=== PATIENT | female | born 1950 | race Caucasian/White ===

== ENCOUNTER → 2019-02-20 | Outpatient (CLI) | payer MEDICARE ==
[~2019-02-20] MED LIST: AMLO10TA82 PO; ASP81TEC PO; DILT240C PO; FLUO40CA PO; GLYB2.5T4 PO; HYDR1TAB66 PO; MMT17NA NS; MULT-608 PO; NAPR-243 PO; OMEP20TA2 PO; SIMV20TA3 PO; TRAM50TA2 PO
--- NOTE | 2019-02-20 14:27 | Diagnostic Imaging Report ---
INDICATION: Foot pain, no known injury. TECHNIQUE: 3 views of the right foot CORRELATION STUDY: None FINDINGS: The osseous structures of the foot are intact. Joint spaces are maintained. Alignment anatomic. Approximately 5 mm plantar calcaneal spur. Soft tissues appearing unremarkable. IMPRESSION: 1. Negative for acute findings of the foot. Dictated by: Dictated on workstation # [id number]
--- NOTE | 2019-02-20 14:31 | Diagnostic Imaging Report ---
INDICATION: Low back pain. No known injury. TECHNIQUE: AP, Lateral and Spot imaging of the lumbar spine CORRELATION STUDY: None FINDINGS: Mild leftward curvature lumbar spine apex L3 level. There is otherwise straightening of the normal lumbar lordosis. Trace retrolisthesis of L4 on L5, L3 on L4 and L2 on L3. Lumbar vertebral body heights are well-maintained without acute parenchymal compression deformity or significant loss of height. Endplate lipping and sclerosis particularly at the L3, L4 and L5 levels. Hypertrophic facet arthropathy at L4-L5 and L5-S1 level. There does appear to be rather sizable osteophyte projecting at the posterior inferior L4 vertebral body which may result in foraminal and/or canal narrowing. IMPRESSION: 1. Mild rightward curvature of the lumbar spine. 2. Advanced degenerative changes particularly at the L4-L5 and L5-S1 levels. Prominent osteophyte projects posteriorly at the L4 level may predispose to canal and/or foraminal narrowing. Dictated by: Dictated on workstation # [id number]
== END ==
LOC: RAD FS 14:04
PROVIDERS: ATTEND Nurse Practitioner Family
DX: M43.8X6 Other specified deforming dorsopathies, lumbar region (principal); M47.817 Spondylosis without myelopathy or radiculopathy, lumbosacral region; M25.78 Osteophyte, vertebrae
CPT/HCPCS: 72100; 73630

== ENCOUNTER → 2019-04-27 | Outpatient (CLI) | payer MEDICARE ==
--- NOTE | 2019-04-27 13:22 | Diagnostic Imaging Report ---
INDICATION: COUGH, HOARSNESS, HISTORY OF TOBACCO USEAGE COMPARISON: None FINDINGS: Frontal and lateral views of the chest demonstrate normal heart size and pulmonary vascularity. The lungs are clear. There are no signs of infiltrate, pleural effusions or pneumothoraces. The visualized osseous structures show no acute abnormalities. IMPRESSION: 1. No acute process. No signs of infiltrates, effusions or pneumothoraces. Dictated by: Dictated on workstation # [id number]
== END ==
LOC: RAD FS 12:46
PROVIDERS: ATTEND Nurse Practitioner
DX: R05 Cough (principal); R49.0 Dysphonia; Z87.891 Personal history of nicotine dependence
CPT/HCPCS: 71046

== ENCOUNTER 2020-08-17 18:16 | Emergency (ER) | payer MEDICARE ==
[~2020-08-17] VITALS: Ht 160 cm; Wt 105.7 kg
[2020-08-17 18:17] VITALS: BP 192/83
--- NOTE | 2020-08-17 18:46 | ED Cardiac General ---
History of Present Illness General Chief Complaint: Cardiac/General Problems Stated Complaint: HIGH BP Nursing Triage Note: PT HERE WITH ELVATED BLOOD PRESSURE. SHE STATES SHE HAS AN APPT WITH HER TURPENTINE DISTILLER IN THE MORNING AND DECIDED SHE THINKS SHE WILL WAIT AND SEE HIM ON THE MORNING. SHE STATES SHE GOT ANXIOUS EARLIER WHEN SHE SAW THE ELAVATION. Source: patient History of Present Illness Date Seen by Provider: Aug 17, 2020 Time Seen by Provider: 18:16 Initial Comments 70-year-old female presenting with concerns about her blood pressure. She states that she became anxious and worried about her blood pressure when she was seen in the numbers elevated. She recently had an increase in her irbesartan dose by Shira Klein from [facility]. She has an appointment to see Dr. Nguyen, a certified coder in [place]. She has the appointment to see her certified coder tomorrow morning on 18 August but became worried tonight when she saw the numbers of her blood pressure. She denies any headache, vision change, neck pain, chest pain, shortness of breath. She has had no nausea or vomiting. She denies any swelling in her legs. She does have chronic sciatica and low back pain from disc disease in her lower spine. 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5 Mg Tablet, 3 MG PO DAILY, (Reported) Hydrocodone Bit/Acetaminophen 1 Each Tablet, 1 EACH PO Q4 PRN, (Reported) Mometasone Furoate 17 Gm [place], 1 SPRAY NS UD, (Reported) Multivitamins 1 Tab Tablet, 1 TAB PO DAILY, (Reported) Naproxen 500 Mg Tablet, 1 EACH PO DAILY PRN, (Reported) Omeprazole 20 Mg Tablet.dr, 20 MG PO DAILY, (Reported) Simvastatin 20 Mg Tablet, 20 MG PO DAILY, (Reported) Tramadol Hcl 50 Mg Tablet, 50 MG PO Q6 PRN, (Reported) Patient Home Medication List Home Medication List Reviewed: Yes Review of Systems Review of Systems Constitutional: No chills, No fever EENTM: No Blurred Vision, No Double Vision Respiratory: See HPI Cardiovascular: See HPI; Denies Chest Pain Gastrointestinal: No Symptoms Reported Genitourinary: No Symptoms Reported Musculoskeletal: back pain (Chronic low back pain into her hips that is stable and no worse than normal) Skin: no symptoms reported Psychiatric/Neurological: Anxiety; Denies Headache, Denies Numbness, Denies Paresthesia Endocrine: Denies Unexplained Weight Gain, Denies Unexplaned Weight Loss Past Npnswos-Qswqjx-Wdmjju Hx Past Med/Social Hx: Reviewed Nursing Past Med/Soc Hx Patient Social History Alcohol Use: Denies Use Smoking Status: Never a Smoker 2nd Hand Smoke Exposure: No Recent Infectious Disease Expo: No Recent Hopitalizations: No Seasonal Allergies Seasonal Allergies: No Past Medical History Respiratory: No Cardiac: Yes (HX- AFIB) Atrial Fibrillation, Hypertension Neurological: No 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 Disorders: No Sexually Transmitted Disease: No Genitourinary: No Gastrointestinal: Yes Gastroesophageal Reflux Musculoskeletal: Yes Chronic Back Pain Endocrine: Yes Diabetes, Non-Insulin dep Cancer: No Psychosocial: Yes Anxiety, Depression Integumentary: No Blood Disorders: No Physical Exam Vital Signs Vital Signs - First Documented 08/17/20 18:17 Temp 36.5 Pulse 57 Resp 18 B/P (MAP) 192/83 (119) Pulse Ox 97 O2 Delivery Room Air Capillary Refill : Less Than 3 Seconds Height, Weight, BMI Height: '" Weight: lbs. oz. kg; 41.00 BMI Method: General Appearance: No Apparent Distress, WD/WN, Anxious HEENT: PERRL/EOMI, Pharynx Normal Neck: Full Range of Motion, Normal Inspection, Non Tender, Supple Respiratory: Chest Non Tender, Lungs Clear, Normal Breath Sounds, No Accessory Muscle Use, No Respiratory Distress Cardiovascular: Regular Rate, Rhythm, Normal Peripheral Pulses Gastrointestinal: Normal Bowel Sounds, No Pulsatile Mass, Non Tender, Soft Rectal: Deferred Extremity: Normal Capillary Refill, No Pedal Edema Neurologic/Psychiatric: Alert, Oriented x3 Skin: Normal Color, Warm/Dry Progress/Results/Core Measures Results/Orders Vital Signs/I&O 08/17/20 18:17 Temp 36.5 Pulse 57 Resp 18 B/P (MAP) 192/83 (119) Pulse Ox 97 O2 Delivery Room Air Blood Pressure Mean: 119 Progress Progress Note : Progress Note Initial blood pressure was 192/83 but while resting on the bed and discussing treatment and evaluation options with the patient her repeat blood pressure was 170/71. She denied any headache, vision change, neck or chest pain, shortness of breath, nausea or vomiting. Counseled that blood work and cardiac evaluation can be done tonight to look for signs of kidney damage with her only having a single kidney as well as looking for heart disease or acute changes with her heart. However the patient declined stating that she would rather go home and take her nighttime dose of medication and then keep her appointment in the [facility] with the certified coder. Counseled that if she had problems develop overnight to return or seek medical care. Otherwise take her nighttime dose of medication once she got home and plan on keeping the appointment with cardiology in the morning. Departure Impression Primary Impression: Elevated blood pressure reading Disposition: HOME, SELF-CARE Condition: Stable Departure-Patient Inst. Decision time for Depature: 18:45 Referrals: MOLLY POLLARD MD (PCP) Primary Care Physician SHIRA KLEIN APRN (Family) Primary Care Physician Patient Instructions: High Blood Pressure (DC) Add. Discharge Instructions: Take your Irbesartan tonight when you get home to help with your blood pressure. Follow up with cardiology tomorrow as scheduled and see if they want to check your labs and see what your kidney function and heart tests show. They may want to adjust your medicine to help get better control of your blood pressures. All discharge instructions reviewed with patient and/or family. Voiced understanding. DONNA BARCENAS MD Aug 17, 2020 18:46
== END 2020-08-17 18:48 | disposition home or self-care (01) ==
LOC: EDUNIT# 18:16 → ER FS 18:17
DX: I10 Essential (primary) hypertension (principal); I48.91 Unspecified atrial fibrillation; E11.9 Type 2 diabetes mellitus without complications; K21.9 Gastro-esophageal reflux disease without esophagitis; F41.9 Anxiety disorder, unspecified; F32.9 Major depressive disorder, single episode, unspecified; G89.29 Other chronic pain; M54.5 Low back pain; Z79.82 Long term (current) use of aspirin; Z79.899 Other long term (current) drug therapy
CPT/HCPCS: 99283

== ENCOUNTER 2020-09-21 01:32 | Emergency (ER) | payer MEDICARE ==
[~2020-09-21] VITALS: Ht 165.1 cm; Wt 114.0 kg
[2020-09-21 01:36] VITALS: BP 174/102
--- NOTE | 2020-09-21 01:43 | ED Cardiac General ---
History of Present Illness General Stated Complaint: rapid heart rate History of Present Illness Date Seen by Provider: September 21, 2020 Time Seen by Provider: 01:38 Initial Comments 70-year-old female presents because her "heart is racing" patient has a history of atrial fib. She reports she takes sotalol for this. He reports that it woke her up approximately 15 to 20 minutes prior to arrival and that seems to be beating faster and harder than normal. She does not have any chest pain. She has no shortness of breath, nausea, diaphoresis, fevers, chills, cough. Allergies and Home Medications Allergies Coded Allergies: No Known Drug Allergies (Unverified , 03/26/11) Home Medications Amlodipine Besylate 10 Mg Tablet, 1 EACH PO DAILY, (Reported) Aspirin 81 Mg Tabec, 81 MG PO DAILY, (Reported) Diltiazem Hcl 240 Mg Cap.sr.24h, 1 EACH PO DAILY, (Reported) Fluoxetine Hcl 40 Mg Capsule, 1 EACH PO DAILY, (Reported) Glyburide 2.5 Mg Tablet, 3 MG PO DAILY, (Reported) Hydrocodone Bit/Acetaminophen 1 Each Tablet, 1 EACH PO Q4 PRN, (Reported) Mometasone Furoate 17 Gm [place], 1 SPRAY NS UD, (Reported) Multivitamins 1 Tab Tablet, 1 TAB PO DAILY, (Reported) Naproxen 500 Mg Tablet, 1 EACH PO DAILY PRN, (Reported) Omeprazole 20 Mg Tablet.dr, 20 MG PO DAILY, (Reported) Simvastatin 20 Mg Tablet, 20 MG PO DAILY, (Reported) Tramadol Hcl 50 Mg Tablet, 50 MG PO Q6 PRN, (Reported) Patient Home Medication List Home Medication List Reviewed: Yes Review of Systems Review of Systems Constitutional: No chills, No dizziness, No fever, No weakness Respiratory: Denies Cough, Denies Shortness of Air Cardiovascular: Denies Chest Pain; Irregular Heart Rate; Denies Lightheadedness; Palpitations; Denies Syncope Gastrointestinal: Denies Abdominal Pain, Denies Nausea, Denies Vomiting Genitourinary: No Symptoms Reported Musculoskeletal: no symptoms reported Skin: no symptoms reported Psychiatric/Neurological: No Symptoms Reported Endocrine: No Symptoms Reported Past Nuzsvev-Dkmmjg-Qxybes Hx Past Med/Social Hx: Reviewed Nursing Past Med/Soc Hx Patient Social History 2nd Hand Smoke Exposure: No Recent Hopitalizations: No Seasonal Allergies Seasonal Allergies: Yes Past Medical History Surgeries: Yes (RT KNEE, ABLATIONS) Eye Surgery, Hysterectomy, Nephrectomy, Orthopedic Respiratory: No Cardiac: Yes (HX- AFIB) Atrial Fibrillation, Chronic Edema/Swelling, High Cholesterol, Hypertension Neurological: No 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 Sexually Transmitted Disease: No Genitourinary: No Kidney Stones Gastrointestinal: Yes Gastroesophageal Reflux Musculoskeletal: Yes Chronic Back Pain Endocrine: Yes Diabetes, Non-Insulin dep HEENT: Yes (MACULAR SX) Cancer: No Kidney Did You Recieve Any Treatments: Yes What Type of Treatment Did You: Surgical Intervention Psychosocial: Yes Anxiety, Depression Integumentary: No Blood Disorders: No Physical Exam Vital Signs Vital Signs - First Documented 09/21/20 01:36 Temp 36.8 Pulse 120 Resp 17 B/P (MAP) 174/102 (126) Pulse Ox 96 O2 Delivery Room Air Capillary Refill : Height, Weight, BMI Height: '" Weight: lbs. oz. kg; 41.00 BMI Method: General Appearance: No Apparent Distress HEENT: PERRL/EOMI, Moist Mucous Membranes Neck: Full Range of Motion Respiratory: Lungs Clear, Normal Breath Sounds Cardiovascular: Normal Peripheral Pulses, Irregularly Irregular, Tachycardia Gastrointestinal: Non Tender, Soft Extremity: Normal Capillary Refill, Normal Range of Motion Neurologic/Psychiatric: Alert, Oriented x3, No Motor/Sensory Deficits, turnaround engineer II- XII Norm as Tested Skin: Normal Color, Warm/Dry Progress/Results/Core Measures Results/Orders Lab Results Laboratory Tests Test 09/21/20 01:45 Range/Units White Blood Count 8.8 4.3-11.0 10^3/uL Red Blood Count 4.69 4.35-5.85 10^6/uL Hemoglobin 13.2 11.5-16.0 G/DL Hematocrit 41 35-52 % Mean Corpuscular Volume 88 80-99 FL Mean Corpuscular Hemoglobin 28 25-34 PG Mean Corpuscular Hemoglobin Concent 32 32-36 G/DL Red Cell Distribution Width 15.6 H 10.0-14.5 % Platelet Count 228 130-400 10^3/uL Mean Platelet Volume 10.5 H 7.4-10.4 FL Sodium Level 143 135-145 MMOL/L Potassium Level 3.7 3.6-5.0 MMOL/L Chloride Level 107 98-107 MMOL/L Carbon Dioxide Level 27 21-32 MMOL/L Anion Gap 9 5-14 MMOL/L Blood Urea Nitrogen 12 7-18 MG/DL Creatinine 0.75 0.60-1.30 MG/DL Estimat Glomerular Filtration Rate > 60 BUN/Creatinine Ratio 16 Glucose Level 155 H 70-105 MG/DL Calcium Level 9.4 8.5-10.1 MG/DL Corrected Calcium 9.2 8.5-10.1 MG/DL Magnesium Level 2.1 1.6-2.4 MG/DL Total Bilirubin 0.3 0.1-1.0 MG/DL Aspartate Amino Transf (AST/SGOT) 19 5-34 U/L Alanine Aminotransferase (ALT/SGPT) 23 0-55 U/L Alkaline Phosphatase 102 40-136 U/L Troponin I < 0.30 <0.30 NG/ML Total Protein 7.1 6.4-8.2 GM/DL Albumin 4.2 3.2-4.5 GM/DL My Orders Orders - LIM,LADY L DO Chest 1 View Ap/Pa Only (09/21/20 01:46) Ekg Tracing (09/21/20 01:46) Ed Iv/Invasive Line Start (09/21/20 01:46) Monitor-Rhythm Ecg Trace Only (09/21/20 01:46) Cbc No Diff (09/21/20 01:46) Comprehensive Metabolic Panel (09/21/20 01:46) Magnesium (09/21/20 01:46) Troponin I Fs (09/21/20 01:46) Ed Iv/Invasive Line Start (09/21/20 01:47) Ns Iv 500 Ml (Sodium Chloride 0.9%) (09/21/20 02:00) Medications Given in ED Current Medications Medications Dose Ordered Sig/Fauzia Route Start Time Stop Time Status Last Admin Dose Admin Sodium Chloride 500 ml @ 0 mls/hr Q0M ONCE IV 09/21/20 02:00 09/21/20 02:01 DC 09/21/20 01:54 999 MLS/HR Vital Signs/I&O 09/21/20 01:36 Temp 36.8 Pulse 120 Resp 17 B/P (MAP) 174/102 (126) Pulse Ox 96 O2 Delivery Room Air Progress Progress Note : Progress Note Patient initial rhythm upon level was atrial fib with heart rate ranging from approximately 90-1 20 on the monitor. Shortly after arrival patient spontaneously converted to normal sinus rhythm with a heart rate approximately 60. Patient labs shows no acute abnormalities. Patient received 500 mL bolus of fluid. Patient requested to be discharged home symptoms of fluids finished. Patient had no symptoms upon discharge.. Initial ECG Impression Date: September 21, 2020 Initial ECG Impression Time: 01:36 Initial ECG Rate: 113 Initial ECG Rhythm: A Fib/Flutter Initial ECG Impression: Nonspecific Changes, Atrial Fibrillation Departure Impression Primary Impression: Atrial fibrillation Qualified Codes: I48.20 - Chronic atrial fibrillation, unspecified Disposition: HOME, SELF-CARE Condition: Stable Departure-Patient Inst. Referrals: IVON KLEIN APRN (PCP/Family) Primary Care Physician Patient Instructions: Atrial Fibrillation Add. Discharge Instructions: Follow-up with your concrete craftsman in the next week for continuation of care and recheck of your atrial fib LADY LIM DO September 21, 2020 01:43
[2020-09-21 01:56] LABS: HEMATOCRIT 41 % (35-52); HEMOGLOBIN 13.2 G/DL (11.5-16.0); MEAN CORPUSCULAR HEMOGLOBIN 28 PG (25-34); MEAN CORPUSCULAR HGB CONC 32 G/DL (32-36); MEAN CORPUSCULAR VOLUME 88 FL (80-99); MEAN PLATELET VOLUME 10.5 FL (7.4-10.4); PLATELET COUNT 228 10^3/uL (130-400); WHITE BLOOD COUNT 8.8 10^3/uL (4.3-11.0)
[2020-09-21] MEDS ORDERED: NS IV 500 ML 500 ML IV ONE (02:00)
[2020-09-21 02:16] LABS: ALANINE AMINOTRANSFERASE 23 U/L (0-55); ALBUMIN 4.2 GM/DL (3.2-4.5); ALKALINE PHOSPHATASE 102 U/L (40-136); BILIRUBIN,TOTAL 0.3 MG/DL (0.1-1.0); BUN/CREATININE RATIO 16; CALCIUM 9.4 MG/DL (8.5-10.1); CARBON DIOXIDE 27 MMOL/L (21-32); CHLORIDE 107 MMOL/L (98-107); CREATININE SERUM 0.75 MG/DL (0.60-1.30); GFR ESTIMATED > 60; GLUCOSE 155 MG/DL (70-105); MAGNESIUM 2.1 MG/DL (1.6-2.4); POTASSIUM 3.7 MMOL/L (3.6-5.0); SODIUM 143 MMOL/L (135-145); TOTAL PROTEIN 7.1 GM/DL (6.4-8.2)
--- NOTE | 2020-09-21 07:15 | Diagnostic Imaging Report ---
INDICATION: Chest pain. TECHNIQUE: Single view chest 1:41 AM. CORRELATION STUDY: 04/27/2019 FINDINGS: Heart size enlarged. Vasculature slightly prominent. This does appear to be slightly increased from prior. Elevated right diaphragm medially. Lung puga are clear. IMPRESSION: 1. Cardiac enlargement with borderline vasculature, change from prior. Dictated by: Dictated on workstation # [id number]
== END 2020-09-21 02:38 | disposition home or self-care (01) ==
LOC: EDUNIT# 01:32 → ER FS 01:34
DX: I48.91 Unspecified atrial fibrillation (principal); I10 Essential (primary) hypertension; E11.9 Type 2 diabetes mellitus without complications; E78.00 Pure hypercholesterolemia, unspecified; K21.9 Gastro-esophageal reflux disease without esophagitis; G89.29 Other chronic pain; M54.9 Dorsalgia, unspecified; F41.9 Anxiety disorder, unspecified; F32.9 Major depressive disorder, single episode, unspecified; Z79.891 Long term (current) use of opiate analgesic; Z79.1 Long term (current) use of non-steroidal anti-inflammatories (NSAID); Z79.899 Other long term (current) drug therapy
CPT/HCPCS: 36415; 71045; 80053; 83735; 84484; 85027; 93005; 93041

== ENCOUNTER → 2020-10-01 | Outpatient (CLI) | payer MEDICARE ==
[2020-10-01 17:03] LABS: INR 1.1 (0.8-1.4); PROTHROMBIN TIME PATIENT 14.5 SEC (12.2-14.7)
== END ==
LOC: LAB FS 16:00
PROVIDERS: ATTEND Nurse Practitioner Family
DX: I48.0 Paroxysmal atrial fibrillation (principal)
CPT/HCPCS: 36415; 85610; 85730

== ENCOUNTER → 2020-10-11 | Outpatient (CLI) | payer MEDICARE ==
[2020-10-11 13:09] LABS: INR 1.2 (0.8-1.4); PROTHROMBIN TIME PATIENT 15.1 SEC (12.2-14.7)
== END ==
LOC: LAB FS 12:22
PROVIDERS: ATTEND Family Medicine
DX: I48.0 Paroxysmal atrial fibrillation (principal)
CPT/HCPCS: 36415; 85610; 85730

== ENCOUNTER 2020-11-05 09:09 | Emergency (ER) | payer MEDICARE ==
[~2020-11-05] VITALS: Ht 165.1 cm; Wt 112.2 kg
--- NOTE | 2020-11-05 09:18 | ED Lower Extremity ---
General Chief Complaint: Lower Extremity Stated Complaint: SWELLING/REDNESS ON KNEE History of Present Illness Date Seen by Provider: Nov 05, 2020 Time Seen by Provider: 09:18 Initial Comments 70-year-old female presents with left knee swelling and erythema. Patient reports has been going on for a couple days. She is not exactly sure when it started. Patient has been seen by physical therapy following a knee replacement about a month ago. They told her to present to the ER for further evaluation today. Patient denies any pain. Patient has not called her sterilization specialist. Patient with no fevers chills or other systemic complaints. Allergies and Home Medications Allergies Coded Allergies: lisinopril (Verified Allergy, Unknown, 11/05/20) Home Medications Amlodipine Besylate 10 Mg Tablet, 1 EACH PO DAILY, (Reported) Aspirin 81 Mg Tabec, 81 MG PO DAILY, (Reported) Cephalexin 500 Mg Tablet, 500 MG PO QID Prescribed by: LADY LIM on 11/05/20 0950 Diltiazem Hcl 240 Mg Cap.sr.24h, 1 EACH PO DAILY, (Reported) Fluoxetine Hcl 40 Mg Capsule, 1 EACH PO DAILY, (Reported) Glyburide 2.5 Mg Tablet, 3 MG PO DAILY, (Reported) Hydrocodone Bit/Acetaminophen 1 Each Tablet, 1 EACH PO Q4 PRN, (Reported) Mometasone Furoate 17 Gm [place], 1 SPRAY NS UD, (Reported) Multivitamins 1 Tab Tablet, 1 TAB PO DAILY, (Reported) Naproxen 500 Mg Tablet, 1 EACH PO DAILY PRN, (Reported) Omeprazole 20 Mg Tablet.dr, 20 MG PO DAILY, (Reported) Simvastatin 20 Mg Tablet, 20 MG PO DAILY, (Reported) Tramadol Hcl 50 Mg Tablet, 50 MG PO Q6 PRN, (Reported) Patient Home Medication List Home Medication List Reviewed: Yes Review of Systems Constitutional: No chills, No fever Respiratory: No cough, No short of breath Cardiovascular: No chest pain Gastrointestinal: No abdominal pain, No nausea, No vomiting Musculoskeletal: see HPI Skin: see HPI Past Xdmurzk-Pmwoyr-Tjabbv Hx Past Med/Social Hx: Reviewed Nursing Past Med/Soc Hx Patient Social History 2nd Hand Smoke Exposure: No Recent Hopitalizations: No Seasonal Allergies Seasonal Allergies: Yes Past Medical History Surgeries: Yes (RT KNEE, ABLATIONS) Eye Surgery, Hysterectomy, Nephrectomy, Orthopedic Respiratory: No Cardiac: Yes (HX- AFIB) Atrial Fibrillation, Chronic Edema/Swelling, High Cholesterol, Hypertension Neurological: No 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 Sexually Transmitted Disease: No Genitourinary: No Kidney Stones Gastrointestinal: Yes Gastroesophageal Reflux Musculoskeletal: Yes Chronic Back Pain Endocrine: Yes Diabetes, Non-Insulin dep HEENT: Yes (MACULAR SX) Cancer: No Kidney Did You Recieve Any Treatments: Yes What Type of Treatment Did You: Surgical Intervention Psychosocial: Yes Anxiety, Depression Integumentary: No Blood Disorders: No Physical Exam Vital Signs Vital Signs - First Documented 11/05/20 09:14 Temp 36.3 Pulse 62 Resp 18 B/P (MAP) 163/64 (97) Pulse Ox 97 O2 Delivery Room Air Capillary Refill : Height, Weight, BMI Height: '" Weight: lbs. oz. kg; 41.00 BMI Method: General Appearance: no apparent distress Cardiovascular: normal peripheral pulses, regular rate, rhythm Respiratory: lungs clear, normal breath sounds Gastrointestinal: non tender, soft Hips: bilateral hip non-tender Legs: bilateral leg non-tender Knees: left knee other (Mild swelling and erythema along incision post knee replacement. No drainage. Mild warmth. Minimal swelling.) Neurologic/Psychiatric: alert, normal mood/affect, oriented x 3 Skin: other (Mild erythema and minimal warmth along incision post knee replaced) Progress/Results/Core Measures Results/Orders Lab Results Laboratory Tests Test 11/05/20 09:45 Range/Units White Blood Count 8.7 4.3-11.0 10^3/uL Red Blood Count 4.28 L 4.35-5.85 10^6/uL Hemoglobin 11.9 11.5-16.0 G/DL Hematocrit 38 35-52 % Mean Corpuscular Volume 89 80-99 FL Mean Corpuscular Hemoglobin 28 25-34 PG Mean Corpuscular Hemoglobin Concent 31 L 32-36 G/DL Red Cell Distribution Width 15.3 H 10.0-14.5 % Platelet Count 204 130-400 10^3/uL Mean Platelet Volume 11.2 H 7.4-10.4 FL Immature Granulocyte % (Auto) 0 % Neutrophils (%) (Auto) 75 42-75 % Lymphocytes (%) (Auto) 14 12-44 % Monocytes (%) (Auto) 7 0-12 % Eosinophils (%) (Auto) 3 0-10 % Basophils (%) (Auto) 1 0-10 % Neutrophils # (Auto) 6.5 1.8-7.8 X 10^3 Lymphocytes # (Auto) 1.2 1.0-4.0 X 10^3 Monocytes # (Auto) 0.6 0.0-1.0 X 10^3 Eosinophils # (Auto) 0.3 0.0-0.3 10^3/uL Basophils # (Auto) 0.1 0.0-0.1 10^3/uL Immature Granulocyte # (Auto) 0.0 0.0-0.1 10^3/uL Sodium Level 141 135-145 MMOL/L Potassium Level 3.5 L 3.6-5.0 MMOL/L Chloride Level 106 98-107 MMOL/L Carbon Dioxide Level 23 21-32 MMOL/L Anion Gap 12 5-14 MMOL/L Blood Urea Nitrogen 13 7-18 MG/DL Creatinine 0.60 0.60-1.30 MG/DL Estimat Glomerular Filtration Rate > 60 BUN/Creatinine Ratio 22 Glucose Level 131 H 70-105 MG/DL Calcium Level 9.0 8.5-10.1 MG/DL C-Reactive Protein 0.65 H <0.50 MG/DL My Orders Orders - LIM,LADY L DO Basic Metabolic Panel (11/05/20 09:25) Cbc With Automated Diff (11/05/20 09:25) Blood Culture (11/05/20 09:25) Crp Fs (11/05/20 09:25) Ceftriaxone (Rocephin) (11/05/20 09:30) Lidocaine 1% Inj 20 Ml (Xylocaine 1% Inj (11/05/20 09:30) Vital Signs/I&O 11/05/20 09:14 Temp 36.3 Pulse 62 Resp 18 B/P (MAP) 163/64 (97) Pulse Ox 97 O2 Delivery Room Air Progress Progress Note : Progress Note Patient was given Rocephin IM in the ER. She will be discharged home on Keflex. Mild superficial cellulitis at this time. Patient should call her orthopedic surgeon on Saturday morning to arrange recheck as soon as possible. She should return the ER as needed Departure Impression Primary Impression: Postoperative wound infection Additional Impression: Cellulitis of left knee Disposition: 01 HOME, SELF-CARE Condition: Stable Departure-Patient Inst. Referrals: IVON KLEIN APRN (PCP/Family) Primary Care Physician Patient Instructions: Cellulitis (Skin Infection), Adult ED, Wound Care ED Add. Discharge Instructions: call your orthopedic surgeon first thing saturday morning to schedule an appointment there reevaluate next week Return to the ER as needed All discharge instructions reviewed with patient and/or family. Voiced understanding. Scripts Cephalexin (Cephalexin) 500 Mg Tablet 500 MG PO QID, #20 TAB 0 Refills Prov: LADY LIM DO 11/05/20 LADY LIM DO Nov 05, 2020 09:18
[2020-11-05] MEDS ORDERED: cefTRIAXone 1,000 MG VIAL IM ONE (09:30)
[2020-11-05] MEDS ORDERED: LIDOCAINE 1% INJ 20 ML 20 ML VIAL INJ ONE (09:30)
[2020-11-05] MEDS ORDERED: CEPH500T PO (09:50)
[2020-11-05 09:57] LABS: BASOPHILS % (AUTO) 1 % (0-10); EOSINOPHILS % (AUTO) 3 % (0-10); HEMATOCRIT 38 % (35-52); HEMOGLOBIN 11.9 G/DL (11.5-16.0); LYMPHOCYTES # (AUTO) 1.2 X 10^3 (1.0-4.0); LYMPHOCYTES % (AUTO) 14 % (12-44); MEAN CORPUSCULAR HEMOGLOBIN 28 PG (25-34); MEAN CORPUSCULAR HGB CONC 31 G/DL (32-36); MEAN CORPUSCULAR VOLUME 89 FL (80-99); MEAN PLATELET VOLUME 11.2 FL (7.4-10.4); MONOCYTES # (AUTO) 0.6 X 10^3 (0.0-1.0); MONOCYTES % (AUTO) 7 % (0-12); NEUTROPHILS # (AUTO) 6.5 X 10^3 (1.8-7.8); NEUTROPHILS % (AUTO) 75 % (42-75); PLATELET COUNT 204 10^3/uL (130-400); WHITE BLOOD COUNT 8.7 10^3/uL (4.3-11.0)
[2020-11-05 09:58] LABS: BASOPHILS # (AUTO) 0.1 10^3/uL (0.0-0.1); EOSINOPHILS # (AUTO) 0.3 10^3/uL (0.0-0.3)
[2020-11-05 10:11] LABS: BUN/CREATININE RATIO 22; CARBON DIOXIDE 23 MMOL/L (21-32); CHLORIDE 106 MMOL/L (98-107); GFR ESTIMATED > 60; GLUCOSE 131 MG/DL (70-105); POTASSIUM 3.5 MMOL/L (3.6-5.0); SODIUM 141 MMOL/L (135-145)
[2020-11-05 11:10] VITALS: BP 152/58
== END 2020-11-05 11:10 | disposition home or self-care (01) ==
LOC: EDUNIT# 09:09 → ER FS 09:11
DX: T81.40XA Infection following a procedure, unspecified, initial encounter (principal); L03.116 Cellulitis of left lower limb; E11.9 Type 2 diabetes mellitus without complications; E78.00 Pure hypercholesterolemia, unspecified; I10 Essential (primary) hypertension; G89.29 Other chronic pain; M54.9 Dorsalgia, unspecified; F32.9 Major depressive disorder, single episode, unspecified; K21.9 Gastro-esophageal reflux disease without esophagitis; Z96.652 Presence of left artificial knee joint; Z79.82 Long term (current) use of aspirin; Z79.899 Other long term (current) drug therapy; Z79.891 Long term (current) use of opiate analgesic
CPT/HCPCS: 36415; 80048; 85025; 86141; 87040

== ENCOUNTER → 2021-02-10 | Outpatient (CLI) | payer MEDICARE ==
[~2021-02-10] MED LIST changes: +CEPH500T PO
== END ==
LOC: LAB FS 10:00
PROVIDERS: ATTEND Orthopaedic Surgery Orthopaedic Trauma
DX: Z01.812 Encounter for preprocedural laboratory examination (principal); Z20.822 Contact with and (suspected) exposure to COVID-19
CPT/HCPCS: 87635

== ENCOUNTER → 2021-03-15 | Outpatient (CLI) | payer MEDICARE ==
[~2021-03-15] MED LIST changes: +ACET-2267 PO; +ACHD5005 PO; +AMLO-251 PO; +CEPH250C PO; +DOXA2TAB2 PO; +FURO40TA4 PO; +IRBE300T17 PO; +PANT40TA52 PO; +POTA20TA15 PO; +SIMV20TA26 PO; +SOTA160T PO; +VITA-189 PO; +WARF-48 PO; +WRF1T PO
[2021-03-15 17:27] LABS: INR 1.9 (0.8-1.4); PROTHROMBIN TIME PATIENT 22.5 SEC (12.2-14.7)
== END ==
LOC: LAB FS 17:00
PROVIDERS: ATTEND Nurse Practitioner Family
DX: I48.91 Unspecified atrial fibrillation (principal)
CPT/HCPCS: 36415; 85610

== ENCOUNTER 2021-04-30 12:32 | Emergency (ER) | payer MEDICARE ==
[~2021-04-30] VITALS: Ht 165.1 cm; Wt 107.0 kg
[~2021-04-30 12:32] MED LIST changes: +POTA-179 PO; -POTA20TA15 PO
[2021-04-30 12:58] LABS: COLOR,URINE YELLOW
[2021-04-30 12:59] LABS: BACTERIA,URINE MODERATE /HPF; BILIRUBIN,URINE NEGATIVE (NEGATIVE); CLARITY,URINE SLIGHTLY CLOUDY; GLUCOSE, URINE (UA) NEGATIVE (NEGATIVE); KETONES,URINE NEGATIVE (NEGATIVE); LEUKOCYTE ESTERASE ,URINE TRACE (NEGATIVE); NITRITE,URINE NEGATIVE (NEGATIVE); PH,URINE 5.5 (5-9); PROTEIN,URINE NEGATIVE (NEGATIVE); SQUAMOUS EPITHELIAL CELL,UR 25-50 /HPF; WBC,URINE 25-50 /HPF; YEAST,URINE FEW /HPF
[2021-04-30 13:59] LABS: HEMATOCRIT 37 % (35-52); HEMOGLOBIN 10.6 g/dL (11.5-16.0); MEAN CORPUSCULAR HEMOGLOBIN 23 pg (25-34); MEAN CORPUSCULAR HGB CONC 29 g/dL (32-36); MEAN CORPUSCULAR VOLUME 79 fL (80-99); MEAN PLATELET VOLUME 10.2 fL (9.0-12.2); PLATELET COUNT 323 10^3/uL (130-400); WHITE BLOOD COUNT 9.2 10^3/uL (4.3-11.0)
[2021-04-30 14:00] LABS: BASOPHILS # (AUTO) 0.1 10^3/uL (0.0-0.1); BASOPHILS % (AUTO) 1 % (0-10); BILIRUBIN,TOTAL 0.4 MG/DL (0.1-1.0); CALCIUM 9.5 MG/DL (8.5-10.1); CREATININE SERUM 0.87 MG/DL (0.60-1.30); EOSINOPHILS # (AUTO) 0.3 10^3/uL (0.0-0.3); EOSINOPHILS % (AUTO) 3 % (0-10); LYMPHOCYTES # (AUTO) 1.7 X 10^3 (1.0-4.0); LYMPHOCYTES % (AUTO) 18 % (12-44); MONOCYTES # (AUTO) 0.9 X 10^3 (0.0-1.0); MONOCYTES % (AUTO) 10 % (0-12); NEUTROPHILS # (AUTO) 6.2 X 10^3 (1.8-7.8); NEUTROPHILS % (AUTO) 68 % (42-75); POTASSIUM 4.7 MMOL/L (3.6-5.0); TOTAL PROTEIN 7.8 GM/DL (6.4-8.2)
[2021-04-30] MEDS ORDERED: NITR-65 PO ×2 (14:14→14:28)
--- NOTE | 2021-04-30 14:14 | ED General ---
General Chief Complaint: Dizziness/Syncope Stated Complaint: DIZZINESS Nursing Triage Note: PT AMBULATE TO ROOM [facility] WITHOUT DIFFICULTY WITH C/O DIZZYNESS AND BEING LIGHTHEADED. Source of Information: Patient, Old Records History of Present Illness Date Seen by Provider: Apr 30, 2021 Time Seen by Provider: 12:49 Initial Comments 70-year-old female presenting with complaints of dizziness and feeling lightheaded. She states at home she felt like a warm flushed feeling went over her whole body. She is feeling dizzy with lightheadedness. She had no nausea, vomiting, chest pain, abdominal pain, diarrhea, pain with urination. She has had some frequency of urination. She denies any fever or chills. She had taken her regular medicines this morning without any difficulty. Then approximately an hour to 2 hours prior to arrival in the ED she started feeling like she was getting flushed and lightheaded. She states she does not start feel that way now but she did at home. Timing/Duration: 1-3 Hours Severity: Moderate Associated Systoms: No Chest Pain, No Cough, No Diaphoresis, No Fever/Chills, No Headaches, No Loss of Appetite, No Malaise, No Nausea/Vomiting, No Rash, No Seizure, No Shortness of Air, No Syncope, No Weakness Allergies and Home Medications Allergies Coded Allergies: lisinopril (Verified Allergy, Unknown, 11/05/20) Patient Home Medication List Home Medication List Reviewed: Yes Acetaminophen (Tylenol Extra Strength) 500 Mg Tablet, 500-1,000 MG PO Q8H PRN for PAIN-MILD (1-4), (Reported) Entered as Reported by: GIANCARLO MCCABE on 02/24/21 1320 Amlodipine Besylate (Amlodipine Besylate) 10 Mg Tablet, 10 MG PO DAILY, (Rep orted) Entered as Reported by: GIANCARLO MCCABE on 02/24/21 1320 Cephalexin (Cephalexin) 250 Mg Capsule, 500 MG PO TID Prescribed by: ANGELITO ORELLANA on 03/10/21 1203 Doxazosin Mesylate (Doxazosin Mesylate) 2 Mg Tablet, 2 MG PO DAILY, (Reported) Entered as Reported by: GIANCARLO MCCABE on 02/24/21 1320 Fluoxetine HCl (Fluoxetine HCl) 40 Mg Capsule, 40 MG PO DAILY, (Reported) Entered as Reported by: GIANCARLO MCCABE on 02/24/21 132 Furosemide (Furosemide) 40 Mg Tablet, 40 MG PO DAILY, (Reported) Entered as Reported by: GIANCARLO MCCABE on 02/24/21 132 Hydrocodone Bit/Acetaminophen (HYDROcodone/APAP 5 MG/325 MG TAB) 1 Tab Tab, 1 EA PO Q4H PRN for PAIN-MODERATE (5-7) Prescribed by: ANGELITO ORELLANA on 03/10/21 1204 Irbesartan (Irbesartan) 300 Mg Tablet, 300 MG PO HS, (Reported) Entered as Reported by: GIANCARLO MCCABE on 02/24/21 132 Nitrofurantoin Monohyd/M-Cryst (Macrobid 100 mg Capsule) 100 Mg Capsule, 1 TAB PO BID Prescribed by: DONNA BARCENAS on 04/30/21 1428 Pantoprazole Sodium (Pantoprazole Sodium) 40 Mg Tablet.dr, 40 MG PO HS, (Reported) Entered as Reported by: GIANCARLO MCCABE on 02/24/21 132 Potassium Chloride (Potassium Chloride) 20 Meq Tab.er.prt, 20 MEQ PO DAILY, (Reported) Entered as Reported by: GIANCARLO MCCABE on 02/24/21 132 Simvastatin (Simvastatin) 20 Mg Tablet, 20 MG PO HS, (Reported) Entered as Reported by: GIANCARLO MCCABE on 02/24/21 132 Sotalol HCl (Sotalol) 160 Mg Tablet, 80 MG PO BID, (Reported) Entered as Reported by: GIANCARLO MCCABE on 02/24/21 132 Vitamin B Complex (B Complex) 1 Each Tablet, 1 EACH PO DAILY, (Reported) Entered as Reported by: GIANCARLO MCCABE on 02/24/21 132 Warfarin Sodium (Warfarin Sodium) 5 Mg Tablet, 5 MG PO DAILY, (Reported) Entered as Reported by: GIANCARLO MCCABE on 02/24/21 132 Warfarin Sodium (Warfarin Sodium) 1 Mg Tablet, 1.5 MG PO DAILY, (Reported) Entered as Reported by: GIANCARLO MCCABE on 02/24/21 132 Review of Systems Review of Systems Constitutional: No chills, No fever EENTM: no symptoms reported Respiratory: no symptoms reported Cardiovascular: no symptoms reported Gastrointestinal: No nausea, No vomiting Genitourinary: No dysuria; frequency Musculoskeletal: no symptoms reported Skin: No change in color Psychiatric/Neurological: Anxiety; Denies Headache, Denies Numbness, Denies Paresthesia, Denies Tingling Past Bwvxpvl-Nkxdtg-Icnimf Hx Patient Social History Tobacco Use?: No Smoking Status: Never a Smoker Smokeless Tobacco Frequency: Never a User Use of E-Cig and/or Vaping dev: No Use of E-Cig and/or Vaping Kyaw: Never a User Substance use?: No Alcohol Use?: No Pt feels they are or have been: No Immunizations Up To Date First/Initial COVID19 Vaccinat: 07/2020 Second COVID19 Vaccination Antelmo: 07/2020 Seasonal Allergies Seasonal Allergies: Yes Past Medical History Surgery/Hospitalization HX: Atrial fibrillation, hypertension Surgeries: Yes Hysterectomy, Nephrectomy Respiratory: No Cardiac: Yes Atrial Fibrillation, Hypertension Neurological: No 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 Sexually Transmitted Disease: No Genitourinary: No Kidney Stones Gastrointestinal: Yes Gastroesophageal Reflux Musculoskeletal: Yes Arthritis Endocrine: Yes Diabetes, Non-Insulin dep HEENT: No Loss of Vision: Denies Hearing Impairment: Denies Cancer: No Kidney Did You Recieve Any Treatments: Yes What Type of Treatment Did You: Surgical Intervention Psychosocial: No Anxiety, Depression Integumentary: No Blood Disorders: No Family Medical History Heart Disease, Diabetes, Hypertension, Renal Disease Physical Exam Vital Signs Vital Signs - First Documented 04/30/21 12:37 Temp 36.0 Pulse 70 Resp 17 B/P (MAP) 132/53 (79) O2 Delivery Room Air Capillary Refill : Less Than 3 Seconds Height, Weight, BMI Height: '" Weight: lbs. oz. kg; 39.00 BMI Method: General Appearance: No Apparent Distress, WD/WN HEENT: PERRL/EOMI; No Moist Mucous Membranes (Slightly dry mucous membranes) Neck: Full Range of Motion, Normal Inspection, Supple Respiratory: Chest Non Tender, Lungs Clear, Normal Breath Sounds, No Accessory Muscle Use, No Respiratory Distress Cardiovascular: Normal Peripheral Pulses, Irregularly Irregular Gastrointestinal: Normal Bowel Sounds, No Pulsatile Mass, Non Tender, Soft Rectal: Deferred Extremity: Normal Capillary Refill, Normal Inspection, No Pedal Edema Neurologic/Psychiatric: Alert, Oriented x3 Skin: Normal Color, Warm/Dry Progress/Results/Core Measures Suspected Sepsis SIRS Temperature: Pulse: 70 Respiratory Rate: 17 Laboratory Tests 04/30/21 12:45: White Blood Count 9.2 Blood Pressure 132 /53 Mean: 79 Laboratory Tests 04/30/21 12:45: Creatinine 0.87, Platelet Count 323, Total Bilirubin 0.4 Results/Orders Lab Results Laboratory Tests Test 04/30/21 12:38 04/30/21 12:45 Range/Units Urine Color YELLOW Urine Clarity SLIGHTLY CLOUDY Urine pH 5.5 5-9 Urine Specific [place] 1.015 L 1.016-1.022 Urine Protein NEGATIVE NEGATIVE Urine Glucose (UA) NEGATIVE NEGATIVE Urine Ketones NEGATIVE NEGATIVE Urine Nitrite NEGATIVE NEGATIVE Urine Bilirubin NEGATIVE NEGATIVE Urine Urobilinogen 0.2 < = 1.0 MG/DL Urine Leukocyte Esterase TRACE H NEGATIVE Urine RBC (Auto) NEGATIVE NEGATIVE Urine RBC 5-10 H /HPF Urine WBC 25-50 H /HPF Urine Squamous Epithelial Cells 25-50 H /HPF Urine Crystals NONE /LPF Urine Bacteria MODERATE H /HPF Urine Casts NONE /LPF Urine Mucus LARGE H /LPF Urine Yeast FEW H /HPF Urine Culture Indicated NO White Blood Count 9.2 4.3-11.0 10^3/uL Red Blood Count 4.62 3.80-5.11 10^6/uL Hemoglobin 10.6 L 11.5-16.0 g/dL Hematocrit 37 35-52 % Mean Corpuscular Volume 79 L 80-99 fL Mean Corpuscular Hemoglobin 23 L 25-34 pg Mean Corpuscular Hemoglobin Concent 29 L 32-36 g/dL Red Cell Distribution Width 17.6 H 10.0-14.5 % Platelet Count 323 130-400 10^3/uL Mean Platelet Volume 10.2 9.0-12.2 fL Immature Granulocyte % (Auto) 0 % Neutrophils (%) (Auto) 68 42-75 % Lymphocytes (%) (Auto) 18 12-44 % Monocytes (%) (Auto) 10 0-12 % Eosinophils (%) (Auto) 3 0-10 % Basophils (%) (Auto) 1 0-10 % Neutrophils # (Auto) 6.2 1.8-7.8 X 10^3 Lymphocytes # (Auto) 1.7 1.0-4.0 X 10^3 Monocytes # (Auto) 0.9 0.0-1.0 X 10^3 Eosinophils # (Auto) 0.3 0.0-0.3 10^3/uL Basophils # (Auto) 0.1 0.0-0.1 10^3/uL Immature Granulocyte # (Auto) 0.0 0.0-0.1 10^3/uL Sodium Level 138 135-145 MMOL/L Potassium Level 4.7 3.6-5.0 MMOL/L Chloride Level 102 98-107 MMOL/L Carbon Dioxide Level 25 21-32 MMOL/L Anion Gap 11 5-14 MMOL/L Blood Urea Nitrogen 28 H 7-18 MG/DL Creatinine 0.87 0.60-1.30 MG/DL Estimat Glomerular Filtration Rate 64 BUN/Creatinine Ratio 32 Glucose Level 194 H 70-105 MG/DL Calcium Level 9.5 8.5-10.1 MG/DL Corrected Calcium 9.5 8.5-10.1 MG/DL Magnesium Level 2.0 1.6-2.4 MG/DL Total Bilirubin 0.4 0.1-1.0 MG/DL Aspartate Amino Transf (AST/SGOT) 26 5-34 U/L Alanine Aminotransferase (ALT/SGPT) 19 0-55 U/L Alkaline Phosphatase 84 40-136 U/L Total Protein 7.8 6.4-8.2 GM/DL Albumin 4.0 3.2-4.5 GM/DL My Orders Orders - DONNA BARCENAS MD Ua Culture If Indicated (04/30/21 12:37) Ekg Tracing (04/30/21 12:37) Comprehensive Metabolic Panel (04/30/21 13:57) Ed Iv/Invasive Line Start (04/30/21 13:57) Cbc With Automated Diff (04/30/21 13:57) Magnesium (04/30/21 13:57) Vital Signs/I&O 04/30/21 04/30/21 12:37 14:22 Temp 36.0 36.0 Pulse 70 78 Resp 17 17 B/P (MAP) 132/53 (79) 126/62 O2 Delivery Room Air Room Air Capillary Refill : Less Than 3 Seconds Blood Pressure Mean: 79 Progress Note #1: Progress Note Obtain urinalysis as well as electrocardiogram and basic electrolytes. When patient was advised that she is currently in atrial fibrillation but she states that she has had symptoms like this when she was in atrial fibrillation previously. Progress Note #2: Progress Note CBC shows chronic anemia that is stable. Her urinalysis had some bacteria and white blood cells. Her chemistry panel had mild elevation of the BUN for some mild dehydration. Counseled patient about increasing fluids and continuing regular medications. Use Macrobid to help treat for UTI. Check back with the clinic for continued concerns ECG Initial ECG Impression Date: Apr 30, 2021 Initial ECG Impression Time: 12:41 Initial ECG Rate: 34 Initial ECG Rhythm: A Fib/Flutter Initial ECG Comparisson: Changed Comment Atrial fibrillation with heart rate of 34 bpm. Nonspecific intraventricular conduction delay. QT interval 534 ms with a QTc interval 402 ms. There is no acute ST elevation. There are some artifact on the tracing. She had sinus rhythm on the most recent electrocardiogram. Departure Impression Primary Impression: Cystitis without hematuria Additional Impressions: Paroxysmal atrial fibrillation Dehydration Disposition: HOME, SELF-CARE Condition: Stable Departure-Patient Inst. Decision time for Depature: 14:13 Referrals: IVON KLEIN APRN (PCP) Primary Care Physician [facility] (Family) Primary Care Physician Patient Instructions: Atrial Fibrillation and Atrial Flutter ED, Urinary Tract Infection, Adult ED, Dehydration, Adult ED Add. Discharge Instructions: Try to drink more water and stay better hydrated. Take the full course of antibiotics to treat for infection in the bladder. Continue with your regular medications. Check back through the clinic for continued concerns. All discharge instructions reviewed with patient and/or family. Voiced understanding. Scripts Nitrofurantoin Monohyd/M-Cryst (Macrobid 100 mg Capsule) 100 Mg Capsule 1 TAB PO BID for UTI for 5 Days, #10 CAP 0 Refills Prov: DONNA BARCENAS MD 04/30/21 DONNA BARCENAS MD Apr 30, 2021 14:14
[2021-04-30 14:22] VITALS: BP 126/62
== END 2021-04-30 14:25 | disposition home or self-care (01) ==
LOC: EDUNIT# 12:32 → ER FS 12:33
DX: N30.90 Cystitis, unspecified without hematuria (principal); I48.0 Paroxysmal atrial fibrillation; E86.0 Dehydration; I10 Essential (primary) hypertension; K21.9 Gastro-esophageal reflux disease without esophagitis; E11.9 Type 2 diabetes mellitus without complications; Z79.01 Long term (current) use of anticoagulants
CPT/HCPCS: 36415; 80053; 81000; 83735; 85025; 93005

== ENCOUNTER 2021-11-13 10:45 | Emergency (ER) | payer MEDICARE, MEDICAID ==
[~2021-11-13] VITALS: Ht 165 cm; Wt 107.0 kg
[~2021-11-13 10:45] MED LIST changes: +NITR-65 PO
[2021-11-13 11:44] VITALS: BP 120/46
--- NOTE | 2021-11-13 11:55 | ED Cardiac General ---
History of Present Illness General Chief Complaint: Cardiac/General Problems Stated Complaint: ELEV BP Nursing Triage Note: PT REPORTS HER BLOOD PRESSURE IS ELEVATED BUT SHE DOES NOT HAVE ANY SYMPTOMS. SHE TOOK AMLODIPINE AN HOUR AGO. Source: patient Exam Limitations: no limitations History of Present Illness Date Seen by Provider: Nov 13, 2021 Time Seen by Provider: 11:30 Initial Comments Patient is a 71-year-old female who presents to the emergency department today with a concern for elevated blood pressure. She has a history of hypertension and is on Lasix and amlodipine. She did take her amlodipine approximately an hour prior to arrival. Patient states that she took her blood pressure a couple of times this morning and the diastolic number was greater than 85 and she was concerned. She states her systolic was in the 140s to 160s. She denies any complaints of headache, vision changes, speech difficulty. No chest pain or pressure, shortness of breath, nausea or vomiting. No problems with urination. No recent illnesses. She states she does drink quite a lot of soda and had a hot dog yesterday that she knows has a lot of salt in it. Otherwise she is not sure why her blood pressure was up this morning. But again she has 0 symptoms. As I am getting a history from her and reviewing her past medical history she appears comfortable in no acute distress. Blood pressure is rechecked in the room and is down in the 120s 130s. All other review of systems reviewed and negative except as stated. Timing/Duration: 1-3 hours Prior CP/Workup: other (h/o afib on coumadin) Associated Systoms: Denies Symptoms Allergies and Home Medications Allergies Coded Allergies: lisinopril (Verified Allergy, Unknown, 11/05/20) Patient Home Medication List Home Medication List Reviewed: Yes Acetaminophen (Tylenol Extra Strength) 500 Mg Tablet, 500-1,000 MG PO Q8H PRN for PAIN-MILD (1-4), (Reported) Entered as Reported by: GIANCARLO MCCABE on 02/24/21 1320 Amlodipine Besylate (Amlodipine Besylate) 10 Mg Tablet, 10 MG PO DAILY, (Reported) Entered as Reported by: GIANCARLO MCCABE on 02/24/21 1320 Cephalexin (Cephalexin) 250 Mg Capsule, 500 MG PO TID Prescribed by: ANGELITO ORELLANA on 03/10/21 1203 Doxazosin Mesylate (Doxazosin Mesylate) 2 Mg Tablet, 2 MG PO DAILY, (Reported) Entered as Reported by: GIANCARLO MCCABE on 02/24/21 1320 Fluoxetine HCl (Fluoxetine HCl) 40 Mg Capsule, 40 MG PO DAILY, (Reported) Entered as Reported by: GIANCARLO MCCABE on 02/24/21 1320 Furosemide (Furosemide) 40 Mg Tablet, 40 MG PO DAILY, (Reported) Entered as Reported by: GIANCARLO MCCABE on 02/24/21 1320 Hydrocodone Bit/Acetaminophen (HYDROcodone/APAP 5 MG/325 MG TAB) 1 Tab Tab, 1 EA PO Q4H PRN for PAIN-MODERATE (5-7) Prescribed by: ANGELITO ORELLANA on 03/10/21 1204 Irbesartan (Irbesartan) 300 Mg Tablet, 300 MG PO HS, (Reported) Entered as Reported by: GIANCARLO MCCABE on 02/24/21 1320 Nitrofurantoin Monohyd/M-Cryst (Macrobid 100 mg Capsule) 100 Mg Capsule, 1 TAB PO BID Prescribed by: DONNA BARCENAS on 04/30/21 1428 Pantoprazole Sodium (Pantoprazole Sodium) 40 Mg Tablet.dr, 40 MG PO HS, (Reported) Entered as Reported by: GIANCARLO MCCABE on 02/24/21 1320 Potassium Chloride (Potassium Chloride) 20 Meq Tab.er.prt, 20 MEQ PO DAILY, (Reported) Entered as Reported by: GIANCARLO MCCABE on 02/24/21 1320 Simvastatin (Simvastatin) 20 Mg Tablet, 20 MG PO HS, (Reported) Entered as Reported by: GIANCARLO MCCABE on 02/24/21 132 Sotalol HCl (Sotalol) 160 Mg Tablet, 80 MG PO BID, (Reported) Entered as Reported by: GIANCARLO MCCABE on 02/24/21 132 Vitamin B Complex (B Complex) 1 Each Tablet, 1 EACH PO DAILY, (Reported) Entered as Reported by: GIANCARLO MCCABE on 02/24/21 132 Warfarin Sodium (Warfarin Sodium) 5 Mg Tablet, 5 MG PO DAILY, (Reported) Entered as Reported by: GIANCARLO MCCABE on 02/24/21 132 Warfarin Sodium (Warfarin Sodium) 1 Mg Tablet, 1.5 MG PO DAILY, (Reported) Entered as Reported by: GIANCARLO MCCABE on 02/24/21 1320 Review of Systems Review of Systems Constitutional: see HPI EENTM: No Symptoms Reported Respiratory: No Symptoms Reported Cardiovascular: No Symptoms Reported Gastrointestinal: No Symptoms Reported Genitourinary: No Symptoms Reported Musculoskeletal: no symptoms reported Skin: no symptoms reported Psychiatric/Neurological: No Symptoms Reported All Other Systems Reviewed Negative Unless Noted: Yes Past Xjfqwhm-Lewqcw-Lamgks Hx Patient Social History Tobacco Use?: No Use of E-Cig and/or Vaping dev: No Substance use?: No Alcohol Use?: No Pt feels they are or have been: No Immunizations Up To Date First/Initial COVID19 Vaccinat: 07/2020 Second COVID19 Vaccination Antelmo: 07/2020 Third COVID19 Vaccination Date: 07/2020 Seasonal Allergies Seasonal Allergies: Yes Past Medical History Surgery/Hospitalization HX: Atrial fibrillation, hypertension Surgeries: Yes Hysterectomy, Nephrectomy Respiratory: No Cardiac: Yes Atrial Fibrillation, Hypertension Neurological: No 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 Sexually Transmitted Disease: No Genitourinary: No Kidney Stones Gastrointestinal: Yes Gastroesophageal Reflux Musculoskeletal: Yes Arthritis Endocrine: Yes Diabetes, Non-Insulin dep HEENT: No Loss of Vision: Denies Hearing Impairment: Denies Cancer: No Kidney Did You Recieve Any Treatments: Yes What Type of Treatment Did You: Surgical Intervention Psychosocial: No Anxiety, Depression Integumentary: No Blood Disorders: No Family Medical History Heart Disease, Diabetes, Hypertension, Renal Disease Physical Exam Vital Signs Vital Signs - First Documented 11/13/21 10:50 Temp 35.9 Pulse 51 Resp 18 B/P (MAP) 184/75 (111) Pulse Ox 95 O2 Delivery Room Air Capillary Refill : Less Than 3 Seconds Height, Weight, BMI Height: '" Weight: lbs. oz. 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 I cautioned her to avoid lots of soda drinking and salty foods. I advised her to come back if she develops symptoms concerning for stroke, heart attack, kidney issues. She states she does have 1 kidney. She follows up with her primary care doctor regularly. She is comfortable that her blood pressure is back down in the normal range. She is rate controlled A. fib and a bradyc ardic rate of upper 40s low 50s. No complaints of illness. Patient is comfortable with the plan of care. All questions are sought and answered Departure Impression Primary Impression: High blood pressure Qualified Codes: I10 - Essential (primary) hypertension Disposition: 01 HOME, SELF-CARE Condition: Stable Departure-Patient Inst. Decision time for Depature: 11:54 Referrals: IVON KLEIN APRN (PCP) Primary Care Physician [facility] (Family) Primary Care Physician Patient Instructions: High Blood Pressure ED Add. Discharge Instructions: Continue your blood pressure medications as directed. Watch your salt intake which includes not adding extra salt to your food or drinking lots of soda pop. Try and cut back especially on the soda drinking. If you have chest pain or pressure, heaviness, shortness of breath, headache or vision changes or any other symptoms that become concerning to you and your blood pressure is high, where the bottom number is greater than 100 or so please come back to the emergency department for reevaluation. Keep your follow-up appointments with your primary care doctor. Copy Copies To 1: JAZZMINE SAUNDERS KATHRYN M MD Nov 13, 2021 11:55
== END 2021-11-13 11:57 | disposition home or self-care (01) ==
LOC: EDUNIT# 10:45 → ER FS 10:46
DX: I10 Essential (primary) hypertension (principal); Z79.899 Other long term (current) drug therapy
CPT/HCPCS: 99281

== ENCOUNTER 2021-11-22 20:18 | Observation (INO) | payer MEDICARE, MEDICAID ==
[~2021-11-22] VITALS: Ht 165 cm; Wt 110.0 kg
--- NOTE | 2021-11-22 20:42 | ED General ---
General Stated Complaint: LOW HEART RATE History of Present Illness Date Seen by Provider: Nov 22, 2021 Time Seen by Provider: 20:35 Initial Comments 71-year-old female with PMH of atrial fibrillation with history of ablation on sotalol and Eliquis, is here with complaints of feeling dizzy around 6:30 PM to 7 PM today evening. Patient [place] and prior to coming home she took an extra tablet of sotalol. Patient stated that her heart rate was between 40 and 50 when she took the extra tablet of sotalol. An hour or so later she began having the dizziness. Pt is not a good historian and does not really know her PMH in detail. She had 1 brief episode of fluttering around that time, which did not recur. Patient denies chest pain, shortness of breath, palpitations, abdominal pain, fever, diarrhea, nausea and vomiting, headache, neck pain or neck stiffness. No known sick contacts. Allergies and Home Medications Allergies Coded Allergies: lisinopril (Verified Allergy, Unknown, 11/05/20) Patient Home Medication List Home Medication List Reviewed: Yes Acetaminophen (Tylenol Extra Strength) 500 Mg Tablet, 500-1,000 MG PO Q8H PRN for PAIN-MILD (1-4), (Reported) Entered as Reported by: GIANCARLO MCCABE on 02/24/21 132 Amlodipine Besylate (Amlodipine Besylate) 10 Mg Tablet, 10 MG PO DAILY, (Reported) Entered as Reported by: GIANCARLO MCCABE on 02/24/21 1320 Cephalexin (Cephalexin) 250 Mg Capsule, 500 MG PO TID Prescribed by: ANGELITO ORELLANA on 03/10/21 1203 Doxazosin Mesylate (Doxazosin Mesylate) 2 Mg Tablet, 2 MG PO DAILY, (Reported) Entered as Reported by: GIANCARLO MCCABE on 02/24/21 1320 Fluoxetine HCl (Fluoxetine HCl) 40 Mg Capsule, 40 MG PO DAILY, (Reported) Entered as Reported by: GIANCARLO MCCABE on 02/24/21 1320 Furosemide (Furosemide) 40 Mg Tablet, 40 MG PO DAILY, (Reported) Entered as Reported by: GIANCARLO MCCABE on 02/24/21 1320 Hydrocodone Bit/Acetaminophen (HYDROcodone/APAP 5 MG/325 MG TAB) 1 Tab Tab, 1 EA PO Q4H PRN for PAIN-MODERATE (5-7) Prescribed by: ANGELITO ORELLANA on 03/10/21 1204 Irbesartan (Irbesartan) 300 Mg Tablet, 300 MG PO HS, (Reported) Entered as Reported by: GIANCARLO MCCABE on 02/24/21 132 Nitrofurantoin Monohyd/M-Cryst (Macrobid 100 mg Capsule) 100 Mg Capsule, 1 TAB PO BID Prescribed by: DONNA BARCENAS on 04/30/21 1428 Pantoprazole Sodium (Pantoprazole Sodium) 40 Mg Tablet.dr, 40 MG PO HS, (Reported) Entered as Reported by: GIANCARLO MCCABE on 02/24/21 132 Potassium Chloride (Potassium Chloride) 20 Meq Tab.er.prt, 20 MEQ PO DAILY, (Reported) Entered as Reported by: GIANCARLO MCCABE on 02/24/21 132 Simvastatin (Simvastatin) 20 Mg Tablet, 20 MG PO HS, (Reported) Entered as Reported by: GIANCARLO MCCABE on 02/24/21 132 Sotalol HCl (Sotalol) 160 Mg Tablet, 80 MG PO BID, (Reported) Entered as Reported by: GIANCARLO MCCABE on 02/24/21 132 Vitamin B Complex (B Complex) 1 Each Tablet, 1 EACH PO DAILY, (Reported) Entered as Reported by: GIANCARLO MCCABE on 02/24/21 132 Warfarin Sodium (Warfarin Sodium) 5 Mg Tablet, 5 MG PO DAILY, (Reported) Entered as Reported by: GIANCARLO MCCABE on 02/24/21 132 Warfarin Sodium (Warfarin Sodium) 1 Mg Tablet, 1.5 MG PO DAILY, (Reported) Entered as Reported by: GIANCARLO MCCABE on 02/24/21 132 Review of Systems Review of Systems Constitutional: no symptoms reported EENTM: no symptoms reported Respiratory: no symptoms reported Cardiovascular: other (light headedness) Gastrointestinal: no symptoms reported Genitourinary: no symptoms reported Musculoskeletal: no symptoms reported Skin: no symptoms reported Psychiatric/Neurological: No Symptoms Reported Hematologic/Lymphatic: No Symptoms Reported Immunological/Allergic: no symptoms reported Past Weolmez-Axvjkl-Unigyv Hx Immunizations Up To Date First/Initial COVID19 Vaccinat: 07/2020 Second COVID19 Vaccination Antelmo: 07/2020 Third COVID19 Vaccination Date: 07/2020 Seasonal Allergies Seasonal Allergies: Yes Past Medical History Surgery/Hospitalization HX: Atrial fibrillation, hypertension Surgeries: Yes Hysterectomy, Nephrectomy Respiratory: No Cardiac: Yes Atrial Fibrillation, Hypertension Neurological: No 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 Disorders: No 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 Sexually Transmitted Disease: No Genitourinary: No Kidney Stones Gastrointestinal: Yes Gastroesophageal Reflux Musculoskeletal: Yes Arthritis Endocrine: Yes Diabetes, Non-Insulin dep HEENT: No Loss of Vision: Denies Hearing Impairment: Denies Cancer: No Kidney Did You Recieve Any Treatments: Yes What Type of Treatment Did You: Surgical Intervention Psychosocial: No Anxiety, Depression Integumentary: No Blood Disorders: No Family Medical History Heart Disease, Diabetes, Hypertension, Renal Disease Physical Exam Vital Signs Vital Signs - First Documented 11/22/21 20:54 Temp 37.0 Pulse 34 Resp 20 B/P (MAP) 156/59 (91) Pulse Ox 98 O2 Delivery Room Air Capillary Refill : Height, Weight, BMI Height: '" Weight: lbs. oz. 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 Norm as Tested Skin: Normal Color, Warm/Dry Focused Exam Lactate Level 11/22/21 21:05: Lactic Acid Level 1.18 Lactic Acid Level Laboratory Tests Test 11/22/21 21:05 Lactic Acid Level 1.18 MMOL/L (0.50-2.00) Progress/Results/Core Measures Suspected Sepsis SIRS Temperature: Pulse: Respiratory Rate: Laboratory Tests 11/22/21 20:50: White Blood Count 11.8H Blood Pressure / Mean: 11/22/21 21:05: Lactic Acid Level 1.18 Laboratory Tests 11/22/21 20:50: Creatinine 1.25, Platelet Count 248, Total Bilirubin 0.4 Results/Orders Lab Results Laboratory Tests Test 11/22/21 20:50 11/22/21 21:05 Range/Units White Blood Count 11.8 H 4.3-11.0 10^3/uL Red Blood Count 4.96 3.80-5.11 10^6/uL Hemoglobin 14.8 11.5-16.0 g/dL Hematocrit 44 35-52 % Mean Corpuscular Volume 89 80-99 fL Mean Corpuscular Hemoglobin 30 25-34 pg Mean Corpuscular Hemoglobin Concent 34 32-36 g/dL Red Cell Distribution Width 15.3 H 10.0-14.5 % Platelet Count 248 130-400 10^3/uL Mean Platelet Volume 10.4 9.0-12.2 fL Immature Granulocyte % (Auto) 0 % Neutrophils (%) (Auto) 78 H 42-75 % Lymphocytes (%) (Auto) 11 L 12-44 % Monocytes (%) (Auto) 8 0-12 % Eosinophils (%) (Auto) 2 0-10 % Basophils (%) (Auto) 0 0-10 % Neutrophils # (Auto) 9.2 H 1.8-7.8 10^3/uL Lymphocytes # (Auto) 1.3 1.0-4.0 10^3/uL Monocytes # (Auto) 0.9 0.0-1.0 10^3/uL Eosinophils # (Auto) 0.2 0.0-0.3 10^3/uL Basophils # (Auto) 0.1 0.0-0.1 10^3/uL Immature Granulocyte # (Auto) 0.0 0.0-0.1 10^3/uL Sodium Level 139 135-145 MMOL/L Potassium Level 4.4 3.6-5.0 MMOL/L Chloride Level 103 98-107 MMOL/L Carbon Dioxide Level 24 21-32 MMOL/L Anion Gap 12 5-14 MMOL/L Blood Urea Nitrogen 25 H 7-18 MG/DL Creatinine 1.25 0.60-1.30 MG/DL Estimat Glomerular Filtration Rate 46 BUN/Creatinine Ratio 20 Glucose Level 110 H 70-105 MG/DL Calcium Level 9.6 8.5-10.1 MG/DL Corrected Calcium 9.2 8.5-10.1 MG/DL Magnesium Level 2.1 1.6-2.4 MG/DL Total Bilirubin 0.4 0.1-1.0 MG/DL Aspartate Amino Transf (AST/SGOT) 20 5-34 U/L Alanine Aminotransferase (ALT/SGPT) 25 0-55 U/L Alkaline Phosphatase 81 40-136 U/L Troponin I < 0.30 <0.30 NG/ML Pro-B-Type Natriuretic Peptide 195.1 H <125.0 PG/ML Total Protein 7.9 6.4-8.2 GM/DL Albumin 4.5 3.2-4.5 GM/DL Lactic Acid Level 1.18 0.50-2.00 MMOL/L Influenza Type A (RT-PCR) Not Detected Not Detecte Influenza Type B (RT-PCR) Not Detected Not Detecte SARS-CoV-2 RNA (RT-PCR) Not Detected Not Detecte My Orders Orders - ARRON NEIL MD Ed Iv/Invasive Line Start (11/22/21 20:52) Ns Iv 1000 Ml (Sodium Chloride 0.9%) (11/22/21 21:00) Cbc With Automated Diff (11/22/21 20:53) Comprehensive Metabolic Panel (11/22/21 20:53) Drug Screen Stat (Urine) (11/22/21 20:53) Lactic Acid Analyzer (11/22/21 20:53) Magnesium (11/22/21 20:53) Ua Culture If Indicated (11/22/21 20:53) Probnp Fs (11/22/21 20:53) Troponin I Fs (11/22/21 20:53) Chest 1 View Ap/Pa Only (11/22/21 20:53) Ekg Tracing (11/22/21 20:55) Covid 19 Inhouse Test (11/22/21 20:56) Influenza A And B By Pcr (11/22/21 20:56) Glucagon Emergency Kit (Glucagon Emergen (11/22/21 21:32) Glucagon Emergency Kit (Glucagon Emergen (11/22/21 21:41) Vital Signs/I&O 11/22/21 20:54 Temp 37.0 Pulse 34 Resp 20 B/P (MAP) 156/59 (91) Pulse Ox 98 O2 Delivery Room Air Capillary Refill : Progress Note : Progress Note 1. SOTALOL TOXICITY: - CXR: unremarkable - Labs normal except for borderline elevated WBC of 11.8 - UA: pt urinated but missed so we did not get a sample to send - NS IVF bolus - E-ICU Consult: Consulted with Dr Sanders regarding Atropine versus Glucagon usage in this pt. ICU consult recomendation is to start Glucagon 5mg , which can be given [id number], and if this is not working, can give Glucagon 10mg iv drip. Since BP is stable at 159/68 and pt is AOx3, will hold off on Atropine or pressors. - [facility] does not have 5mg of Glucagon in the ER. The max we have is 2 mg. Contacted EMS and they only have 1mg. Will give total of 3mg with ER dose and EMS dose combined. Will send pt with transcutaneous pacers if needed. - Admission/transfer for ICU admission and Cardiology consult and E-ICU consult once admitted - I called Cardiology consult at the request of hospitalist. He agreed with E- ICU consult plan. ECG Initial ECG Impression Date: Nov 22, 2021 Initial ECG Impression Time: 20:45 Initial ECG Rhythm: S.[facility] Diagnostic Imaging Diagonstic Imaging: Xray Plain Films/CT/US/NM/MRI: chest Comments [facility] [place] NAME: JAZZMINE SOLORIO [facility] REC#: [id number] PT STATUS: REG ER : 1950 PHYSICIAN: ARRON NEIL MD ADMIT DATE: 11/22/21/ER FS Signed Date of Exam:11/22/21 CHEST 1 VIEW AP/PA ONLY EXAMINATION: Chest 1 view. HISTORY: Near syncopal episode. COMPARISON: 09/21/2020. FINDINGS: The lung volumes are normal. No focal consolidation is seen. No large pleural effusion or pneumothorax is seen. The cardiomediastinal silhouette is prominent. No acute osseous abnormality is seen. IMPRESSION: Cardiomegaly. No overt pulmonary edema. Dictated by: Dictated on workstation # [id number] Dict: 11/22/212155 Trans: 11/22/212200 [facility] [id number] Interpreted by: ION GANN DO Electronically signed by: ION GANN DO 11/22/212200 Departure Communication (Admissions) Time/Spoke to Consulting Phy: 22:[address] Will Impression Primary Impression: Beta moreno toxicity Disposition: 30 STILL A PATIENT Condition: Stable Admissions Decision to Admit/Date: Nov 22, 2021 Time/Decision to Admit Time: 21:00 Transfer Transfer Reason: Exceeds level of care Time Spoke to Accepting Phy: 21:55 Transfer Progress Notes Transfer to [facility] in [place] Transfer Facility: [facility] Method of Transfer: EMS Departure-Patient Inst. Referrals: IVON KLEIN APRN (PCP) Primary Care Physician [facility] (Family) Primary Care Physician ARRON NEIL MD Nov 22, 2021 20:42
[2021-11-22 21:00] LABS: BASOPHILS # (AUTO) 0.1 10^3/uL (0.0-0.1); BASOPHILS % (AUTO) 0 % (0-10); EOSINOPHILS # (AUTO) 0.2 10^3/uL (0.0-0.3); EOSINOPHILS % (AUTO) 2 % (0-10); HEMATOCRIT 44 % (35-52); HEMOGLOBIN 14.8 g/dL (11.5-16.0); LYMPHOCYTES # (AUTO) 1.3 10^3/uL (1.0-4.0); LYMPHOCYTES % (AUTO) 11 % (12-44); MEAN CORPUSCULAR HEMOGLOBIN 30 pg (25-34); MEAN CORPUSCULAR HGB CONC 34 g/dL (32-36); MEAN CORPUSCULAR VOLUME 89 fL (80-99); MEAN PLATELET VOLUME 10.4 fL (9.0-12.2); MONOCYTES # (AUTO) 0.9 10^3/uL (0.0-1.0); MONOCYTES % (AUTO) 8 % (0-12); NEUTROPHILS # (AUTO) 9.2 10^3/uL (1.8-7.8); NEUTROPHILS % (AUTO) 78 % (42-75); PLATELET COUNT 248 10^3/uL (130-400); WHITE BLOOD COUNT 11.8 10^3/uL (4.3-11.0)
[2021-11-22] MEDS ORDERED: NS IV 1000 ML 1,000 ML IV SCH ×2 (21:00→23:15)
[2021-11-22 21:31] LABS: ALANINE AMINOTRANSFERASE 25 U/L (0-55); ALKALINE PHOSPHATASE 81 U/L (40-136); BILIRUBIN,TOTAL 0.4 MG/DL (0.1-1.0); BUN/CREATININE RATIO 20; CALCIUM 9.6 MG/DL (8.5-10.1); CARBON DIOXIDE 24 MMOL/L (21-32); CHLORIDE 103 MMOL/L (98-107); CREATININE SERUM 1.25 MG/DL (0.60-1.30); GFR ESTIMATED 46; GLUCOSE 110 MG/DL (70-105); MAGNESIUM 2.1 MG/DL (1.6-2.4); POTASSIUM 4.4 MMOL/L (3.6-5.0); SODIUM 139 MMOL/L (135-145)
[2021-11-22 21:32] LABS: ALBUMIN 4.5 GM/DL (3.2-4.5); TOTAL PROTEIN 7.9 GM/DL (6.4-8.2)
[2021-11-22] MEDS ORDERED: GLUCAGON EMERGENCY 1 MG/KIT IM STA (21:32)
[2021-11-22] MEDS ORDERED: GLUCAGON EMERGENCY 1 MG/KIT ONE (21:41)
--- NOTE | 2021-11-22 21:57 | Diagnostic Imaging Report ---
EXAMINATION: Chest 1 view. HISTORY: Near syncopal episode. COMPARISON: 09/21/2020. FINDINGS: The lung volumes are normal. No focal consolidation is seen. No large pleural effusion or pneumothorax is seen. The cardiomediastinal silhouette is prominent. No acute osseous abnormality is seen. IMPRESSION: Cardiomegaly. No overt pulmonary edema. Dictated by: Dictated on workstation # [id number]
[2021-11-22] MEDS ORDERED: NS IV 1000 ML 1,000 ML ONE (23:12)
[2021-11-22] MEDS ORDERED: ANTACID SUSP 30 ML UDC (MYLANTA) PO PRN (23:15)
[2021-11-22] MEDS ORDERED: ONDANSETRON 4 MG/2 ML (SDV) Z0FRAN IV PRN (23:15)
[2021-11-22] MEDS ORDERED: GLUCAGON EMERGENCY 1 MG/KIT IM PRN (23:15)
[2021-11-22] MEDS ORDERED: ONDANSETRON 4 MG (ZOFRAN) ORAL DISSOLVE TAB PO PRN (23:15)
[2021-11-22] MEDS ORDERED: MELATONIN 3 MG TABLET PO PRN (23:15)
[2021-11-22] MEDS ORDERED: polyethylene glycoL POWDER 17 GM (MIRALAX) PACK PO PRN (23:15)
[2021-11-22] MEDS ORDERED: BISACODYL 10 MG SUPP (DULCOLAX) PR PRN (23:15)
[2021-11-22] MEDS ORDERED: ACETAMINOPHEN 325 MG TABLET PO PRN (23:15)
[2021-11-22] MEDS ORDERED: diphenhydrAMINE 50 MG/ML INJ (BENADRYL) IVP PRN (23:15)
[2021-11-22] MEDS ORDERED: diphenhydrAMINE 25 MG TAB (BENADRYL) PO PRN (23:15)
[2021-11-22 23:53] VITALS: BP 156/59
--- NOTE | 2021-11-23 00:25 | Tele-ICU Progress Note ---
Progress Note 71F w/ h/o afib on sotalol admitted with bradycardia. Patient was dizzy today prompting her to check her HR which was 41. She knew it should be over 50, so she took her heart rx - sotalol. At OSH ED HR was in the 40s and BP 150/70. HR then fell to the 28-35 range, glucagon 5 mg given. On arrival 151/78, HR 54 (48- 54). Labs unremarkable. Will monitor closely on tele. Repeat glucagon if HR<40. If requires a third dose will initiate a drip. Focused Exam Lactate Level 11/22/21 21:05: Lactic Acid Level 1.18 Height, Weight, BMI Height: '" Weight: lbs. oz. kg; 40.51 BMI Method: Lactic Acid Level Laboratory Tests Test 11/22/21 21:05 Lactic Acid Level 1.18 MMOL/L (0.50-2.00) MIKE BLOUNT MD Nov 23, 2021 00:25
[2021-11-23] MEDS ORDERED: RT-ALBUTEROL SULF 2.5 MG/3 ML PRE-MIX VIAL INH PRN (01:00)
[2021-11-23 05:44] LABS: BASOPHILS % (AUTO) 0 % (0-10); EOSINOPHILS # (AUTO) 0.2 10^3/uL (0.0-0.3); EOSINOPHILS % (AUTO) 2 % (0-10); HEMATOCRIT 40 % (35-52); LYMPHOCYTES # (AUTO) 1.4 10^3/uL (1.0-4.0); LYMPHOCYTES % (AUTO) 14 % (12-44); MEAN CORPUSCULAR HEMOGLOBIN 30 pg (25-34); MEAN CORPUSCULAR HGB CONC 32 g/dL (32-36); MEAN CORPUSCULAR VOLUME 92 fL (80-99); MEAN PLATELET VOLUME 10.7 fL (9.0-12.2); MONOCYTES # (AUTO) 0.9 10^3/uL (0.0-1.0); MONOCYTES % (AUTO) 8 % (0-12); NEUTROPHILS # (AUTO) 7.7 10^3/uL (1.8-7.8); NEUTROPHILS % (AUTO) 76 % (42-75); PLATELET COUNT 201 10^3/uL (130-400); WHITE BLOOD COUNT 10.2 10^3/uL (4.3-11.0)
[2021-11-23 05:59] LABS: INR 3.4 (0.8-1.4); PROTHROMBIN TIME PATIENT 34.7 SEC (12.2-14.7)
[2021-11-23] MEDS ORDERED: POTASSIUM CL 10MEQ/50ML IVPB 50 ML IV SCH (06:00)
[2021-11-23] MEDS ORDERED: MAGNESIUM 1 GM/100 ML IVPB 100 ML IV SCH (06:00)
[2021-11-23] MEDS ORDERED: KCL 20 MEQ TAB (K-DUR) PO SCH (06:00)
[2021-11-23 06:03] LABS: ALBUMIN 3.6 GM/DL (3.2-4.5); POTASSIUM 3.9 MMOL/L (3.6-5.0)
[2021-11-23 06:04] LABS: CALCIUM 9.1 MG/DL (8.5-10.1)
[2021-11-23 06:06] LABS: TOTAL PROTEIN 6.4 GM/DL (6.4-8.2)
[2021-11-23 06:07] LABS: BILIRUBIN,TOTAL 0.6 MG/DL (0.1-1.0)
[2021-11-23 06:09] LABS: CREATININE SERUM 0.83 MG/DL (0.60-1.30); PHOSPHORUS 2.4 MG/DL (2.3-4.7)
[2021-11-23 06:13] LABS: MAGNESIUM 2.1 MG/DL (1.6-2.4)
--- NOTE | 2021-11-23 08:52 | Tele-ICU Progress Note ---
Subjective Date Seen by a Provider: Nov 23, 2021 Time Seen by a Provider: 08:52 Subjective/Events-last exam Available chart/vitals/labs/images reviewed. Video assessment done using telemetry ICU camera, rest of exam as per RN. Discussion with the RN, exam as per RN. Hospital course. This patient admitted with bradycardia suspected to be from overdose of beta- moreno with sotalol. Sotalol has been held and she was given glucagon IV. Her heart rate currently improved. She denies any dizziness headache nausea or vomiting Sepsis Event Evaluation Height, Weight, BMI Height: '" Weight: lbs. oz. kg; 40.51 BMI Method: Focused Exam Lactate Level 11/22/21 21:05: Lactic Acid Level 1.18 Exam Exam Patient acknowledged, consented, and participated in this virtual visit which was conducted using real time audio/video Vital Signs Date Time Temp Pulse Resp B/P (MAP) Pulse Ox O2 Delivery O2 Flow Rate FiO2 11/23/21 06:00 53 134/73 90 Room Air 11/23/21 05:00 51 148/72 94 Room Air 11/23/21 04:00 97 Room Air 11/23/21 04:00 51 133/71 93 Room Air 11/23/21 03:00 53 134/69 96 Room Air 11/23/21 02:00 53 149/78 94 Room Air 11/23/21 01:06 50 11/23/21 01:00 52 25 141/75 94 Room Air 11/23/21 00:30 49 26 155/99 98 Room Air 11/23/21 00:00 47 20 150/79 97 Room Air 11/22/21 23:56 98 Room Air 11/22/21 23:53 37.0 34 98 21 11/22/21 23:45 49 28 151/81 94 Room Air 11/22/21 23:30 53 26 92/76 93 Room Air 11/22/21 23:15 36.3 54 21 141/61 93 Room Air 11/22/21 23:03 53 11/22/21 22:20 37.0 77 20 107/77 96 Room Air 11/22/21 20:54 37.0 34 20 156/59 (91) 98 Room Air I & O 11/23/21 07:00 Intake Total 1525 ml Balance 1525 ml Height & Weight Height: '" Weight: lbs. oz. 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 Sinus bradycardia with the dizziness most likely due to taking extra dose of sotalol which is better now with the use of glucagon and holding sotalol. 2. History of paroxysmal atrial fibrillation status post ablation more than 3 years ago at [facility]. 2. Oral anticoagulation with warfarin today INR is 3.4 which is slightly high 2. Hypertension 3. Type 2 diabetes mellitus 4. Hyperlipidemia 5. History of hemicolectomy 6. History of for right nephrectomy due to carcinoma of the kidney more than 10 years ago. Recommendations 1. agree with holding sotalol for today and warfarin today and hold and recheck INR. 2. Continue follow-up with Dr. Galloway in [place] 3. Hypertension and hyperlipidemia management for primary care Critical Care: Critically Ill Patient Time spent with patient (mins): 15 LEXI ZAMBRANO MD Nov 23, 2021 08:52
--- NOTE | 2021-11-23 08:54 | Consultation-Cardiology ---
HPI-Cardiology Cardiology Consultation: Date of Consultation 11/23/21 Time Seen by a Provider: 08:25 Date of Admission 11-22-21 Attending Physician Shira Mccarty Aprn Admitting Physician Admitting Physician: Haley Foreman DO Attending Physician: Haley Foreman DO Consulting Physician Andrei Will MD Primary Rig Welder: Dr. Blue in [place] HPI: Chief Complaint: Bradycardia Ms. Solorio is a 71 yr old female admitted to ICU 2 from the ED with c/o dizziness and bradycardia. She reports she has PAF and follows with Dr. Blue in [place]. She reports she has had high blood pressure the last several days at home. Yesterday she checked her BP and it was "good" but her HR was 42. She takes Sotalol BID. She took her evening dose. She reports becoming increasingly weak and dizzy. She denies any near syncope or [place] syncope. No c/o palpitations, CP, SOB. She has chronic mild to mod bilat LE swelling which is unchanged from before. She is maintained on warfarin for stroke prophylaxis. This is followed by her family worker. She reports she is to see Dr. Blue next month. She states she is feeling well today and wishes to go home. Review of Systems-Cardiology Review of Systems Constitutional: No chills, No fever; lightheadedness, malaise Eyes: No vision change Ears/Nose/Throat: No nasal drainage, No recent hearing loss Respiratory: As described under HPI Cardiovascular: As described under HPI Gastrointestinal: No constipation, No diarrhea; nausea; No vomiting Genitourinary: No dysuria, No hematuria Skin: No rash on exposed areas, No ulcerations on exposed areas Psychiatric/Neurological: No anxiety, No depression, No seizure, No focal weakness, No syncope Hematologic: No bleeding abnormalities PCW-[place]-Kpwylw Hx Patient Social History Smoking Status: Former Smoker 2nd Hand Smoke Exposure: No Have you traveled recently?: No Alcohol Use?: No Pt feels they are or have been: No Past Medical History PMH As described under Assessment. Family Medical History Family Medical History: She reports she has a son with WPW. No family h/o CAD or SCD. Allergies and Home Medications Allergies Coded Allergies: lisinopril (Verified Allergy, Unknown, 11/05/20) Patient Home Medication List Acetaminophen (Tylenol Extra Strength) 500 Mg Tablet, 500-1,000 MG PO Q8H PRN for PAIN-MILD (1-4), (Reported) Entered as Reported by: GIANCARLO MCCABE on 02/24/21 1320 Amlodipine Besylate (Amlodipine Besylate) 10 Mg Tablet, 10 MG PO DAILY, (Reported) Entered as Reported by: GIANCARLO MCCABE on 02/24/21 132 Cephalexin (Cephalexin) 250 Mg Capsule, 500 MG PO TID Prescribed by: ANGELITO ORELLANA on 03/10/21 1203 Doxazosin Mesylate (Doxazosin Mesylate) 2 Mg Tablet, 2 MG PO DAILY, (Reported) Entered as Reported by: GIANCARLO MCCABE on 02/24/21 132 Fluoxetine HCl (Fluoxetine HCl) 40 Mg Capsule, 40 MG PO DAILY, (Reported) Entered as Reported by: GIANCARLO MCCABE on 02/24/21 132 Furosemide (Furosemide) 40 Mg Tablet, 40 MG PO DAILY, (Reported) Entered as Reported by: GIANCARLO MCCABE on 02/24/21 132 Hydrocodone Bit/Acetaminophen (HYDROcodone/APAP 5 MG/325 MG TAB) 1 Tab Tab, 1 EA PO Q4H PRN for PAIN-MODERATE (5-7) Prescribed by: ANGELITO ORELLANA on 03/10/21 1204 Irbesartan (Irbesartan) 300 Mg Tablet, 300 MG PO HS, (Reported) Entered as Reported by: GIANCARLO MCCABE on 02/24/21 1320 Nitrofurantoin Monohyd/M-Cryst (Macrobid 100 mg Capsule) 100 Mg Capsule, 1 TAB PO BID Prescribed by: DONNA BARCENAS on 04/30/21 1428 Pantoprazole Sodium (Pantoprazole Sodium) 40 Mg Tablet.dr, 40 MG PO HS, (Reported) Entered as Reported by: GIANCARLO MCCABE on 02/24/21 1320 Potassium Chloride (Potassium Chloride) 20 Meq Tab.er.prt, 20 MEQ PO DAILY, (Reported) Entered as Reported by: GIANCARLO MCCABE on 02/24/21 132 Simvastatin (Simvastatin) 20 Mg Tablet, 20 MG PO HS, (Reported) Entered as Reported by: GIANCARLO MCCABE on 02/24/21 132 Sotalol HCl (Sotalol) 160 Mg Tablet, 80 MG PO BID, (Reported) Entered as Reported by: GIANCARLO MCACBE on 02/24/21 1320 Vitamin B Complex (B Complex) 1 Each Tablet, 1 EACH PO DAILY, (Reported) Entered as Reported by: GIANCARLO MCCABE on 02/24/21 1320 Warfarin Sodium (Warfarin Sodium) 5 Mg Tablet, 5 MG PO DAILY, (Reported) Entered as Reported by: GIANCARLO MCCABE on 02/24/21 1320 Warfarin Sodium (Warfarin Sodium) 1 Mg Tablet, 1.5 MG PO DAILY, (Reported) Entered as Reported by: GIANCARLO MCCABE on 02/24/21 1320 Physical Exam-Cardiology Physical Exam Vital Signs/I&O 11/22/21 11/22/21 11/22/21 11/22/21 20:54 22:20 23:03 23:15 Temp 37.0 37.0 36.3 Pulse 34 77 53 54 Resp 20 20 21 B/P (MAP) 156/59 (91) 107/77 141/61 Pulse Ox 98 96 93 O2 Delivery Room Air Room Air Room Air 11/22/21 11/22/21 11/22/21 11/22/21 23:30 23:45 23:53 23:56 Temp 37.0 Pulse 53 49 34 Resp 26 28 B/P (MAP) 92/76 151/81 Pulse Ox 93 94 98 98 O2 Delivery Room Air Room Air Room Air FiO2 21 11/23/21 11/23/21 11/23/21 11/23/21 00:00 00:30 01:00 01:06 Pulse 47 49 52 50 Resp 20 26 25 B/P (MAP) 150/79 155/99 141/75 Pulse Ox 97 98 94 O2 Delivery Room Air Room Air Room Air 11/23/21 11/23/21 11/23/21 11/23/21 02:00 03:00 04:00 04:00 Pulse 53 53 51 B/P (MAP) 149/78 134/69 133/71 Pulse Ox 94 96 93 97 O2 Delivery Room Air Room Air Room Air Room Air 11/23/21 11/23/21 05:00 06:00 Pulse 51 53 B/P (MAP) 148/72 134/73 Pulse Ox 94 90 O2 Delivery Room Air Room Air 11/23/21 00:00 Intake Total 1000 ml Balance 1000 ml Capillary Refill : Less Than 3 Seconds Constitutional: AAO x 3, well-developed, well-nourished HEENT: PERRL, hearing is well preserved, oral hygience is good Neck: No carotid bruit; carotid pulses are 2 + bilaterally Respiratory: No accessory muscle use, No respiratory distress; chest expansion is symmetric, chest is bilaterally symmetric, lungs clear to auscultation Cardiovascular: regular rate-rhythm, bradycardia Gastrointestinal: No tender; soft, round, audible bowel sounds Extremities: no lower extremity edema bilateral Neurologic/Psychiatric: grossly intact (moves all extremities) Skin: No rash on exposed areas, No ulcerations on exposed areas Data Review Labs Laboratory Tests 11/22/21 20:50: White Blood Count 11.8H, Red Blood Count 4.96, Hemoglobin 14.8, Hematocrit 44, Mean Corpuscular Volume 89, Mean Corpuscular Hemoglobin 30, Mean Corpuscular Hemoglobin Concent 34, Red Cell Distribution Width 15.3H, Platelet Count 248, Mean Platelet Volume 10.4, Immature Granulocyte % (Auto) 0, Neutrophils (%) (Auto) 78H, Lymphocytes (%) (Auto) 11L, Monocytes (%) (Auto) 8, Eosinophils (%) (Auto) 2, Basophils (%) (Auto) 0, Neutrophils # (Auto) 9.2H, Lymphocytes # (Auto) 1.3, Monocytes # (Auto) 0.9, Eosinophils # (Auto) 0.2, Basophils # (Auto) 0.1, Immature Granulocyte # (Auto) 0.0, Sodium Level 139, Potassium Level 4.4, Chloride Level 103, Carbon Dioxide Level 24, Anion Gap 12, Blood Urea Nitrogen 25H, Creatinine 1.25, Estimat Glomerular Filtration Rate 46, BUN/Creatinine Ratio 20, Glucose Level 110H, Calcium Level 9.6, Corrected Calcium 9.2, Magnesium Level 2.1, Total Bilirubin 0.4, Aspartate Amino Transf (AST/SGOT) 20, Alanine Aminotransferase (ALT/SGPT) 25, Alkaline Phosphatase 81, Troponin I < 0.30, Pro-B-Type Natriuretic Peptide 195.1H, Total Protein 7.9, Albumin 4.5 11/22/21 21:05: Lactic Acid Level 1.18, Influenza Type A (RT-PCR) Not Detected, Influenza Type B (RT-PCR) Not Detected, SARS-CoV-2 RNA (RT-PCR) Not Detected 11/23/21 04:46: White Blood Count 10.2, Red Blood Count 4.38, Hemoglobin 13.0, Hematocrit 40, Mean Corpuscular Volume 92, Mean Corpuscular Hemoglobin 30, Mean Corpuscular Hemoglobin Concent 32, Red Cell Distribution Width 15.2H, Platelet Count 201, Mean Platelet Volume 10.7, Immature Granulocyte % (Auto) 0, Neutrophils (%) (Auto) 76H, Lymphocytes (%) (Auto) 14, Monocytes (%) (Auto) 8, Eosinophils (%) (Auto) 2, Basophils (%) (Auto) 0, Neutrophils # (Auto) 7.7, Lymphocytes # (Auto) 1.4, Monocytes # (Auto) 0.9, Eosinophils # (Auto) 0.2, Basophils # (Auto) 0.0, Immature Granulocyte # (Auto) 0.0, Sodium Level 141, Potassium Level 3.9, Chloride Level 108H, Carbon Dioxide Level 23, Anion Gap 10, Blood Urea Nitrogen 21H, Creatinine 0.83, Estimat Glomerular Filtration Rate 75, BUN/Creatinine Ratio 25, Glucose Level 92, Calcium Level 9.1, Corrected Calcium 9.4, Magnesium Level 2.1, Total Bilirubin 0.6, Aspartate Amino Transf (AST/SGOT) 18, Alanine Aminotransferase (ALT/SGPT) 22, Alkaline Phosphatase 63, Total Protein 6.4, Albumin 3.6, Prothrombin Time 34.7H, INR Comment 3.4H, Phosphorus Level 2.4 Laboratory Tests 11/22/21 20:50 11/23/21 04:46 Radiology NAME: JAZZMINE SOLORIO [facility] REC#: [id number] PT STATUS: REG ER : 1950 PHYSICIAN: ARRON NEIL MD ADMIT DATE: 11/22/21/ER FS Signed Date of Exam:11/22/21 CHEST 1 VIEW AP/PA ONLY EXAMINATION: Chest 1 view. HISTORY: Near syncopal episode. COMPARISON: 09/21/2020. FINDINGS: The lung volumes are normal. No focal consolidation is seen. No large pleural effusion or pneumothorax is seen. The cardiomediastinal silhouette is prominent. No acute osseous abnormality is seen. IMPRESSION: Cardiomegaly. No overt pulmonary edema. Dictated by: Dictated on workstation # [id number] Dict: 11/22/212155 Trans: 11/22/212200 [facility] [id number] Interpreted by: ION GANN DO Electronically signed by: ION GANN DO 11/22/212200 ECG Impression ECG Comment Sinus bradycardia - HR 36 A/P-Cardiology Assessment/Admission Diagnosis Sinus bradycardia - likely secondary to medications (Sotalol 80 mg BID) PAF - h/o ablation greater than [address] Blue in [place] - OAC with warfarin - managed by Dr. Blue (INR supra-therapeutic 3.4) HTN HLD DM 2 GERD H/O breast reduction H/O hemicolectomy by Dr. Hector H/O right nephrectomy d/t carcinoma (greaer than 10 yrs ago) Discussion and Recomendations Sinus bradycardia likely secondary to Sotalol - stop Sotalol - continue OAC (hold today d/t supra-therapeutic INR) Request records from Dr. Blue in [place] Continue antihypertensives She would like to go home today to f/u with Dr. Blue We would like to thank medical services for this consult Further recs will be based on her hospital course BALBIR ROJO Nov 23, 2021 08:54
[2021-11-23] MEDS ORDERED: DOCUSATE SODIUM 100 MG (COLACE) CAP PO SCH (09:00)
[2021-11-23] MEDS ORDERED: FLUO20CA48 PO (10:57)
[2021-11-23] MEDS ORDERED: FLUT9.9S NSEACH (10:57)
[2021-11-23] MEDS ORDERED: BUPR450T PO (10:57)
[2021-11-23] MEDS ORDERED: FEXO180T84 PO (10:57)
[2021-11-23] MEDS ORDERED: ACHD5005 PO (10:57)
[2021-11-23] MEDS ORDERED: TEMA15CA PO (10:57)
[2021-11-23] MEDS ORDERED: SOTA160T PO (10:57)
[2021-11-23] MEDS ORDERED: WARF-48 PO (11:12)
[2021-11-23] MEDS ORDERED: WRF1T PO (11:12)
--- NOTE | 2021-11-23 11:14 | Short Stay Summary-Hospitalist ---
History of Present Illness HPI/Chief Complaint CC: Sotalol overdose HPI: This is a 71 yr old female who became a bit confused with her medication and took an overdose of Sotalol after becoming upset. She presented to the ER with dizziness and bradycardia. INR was 3.4 will hold Warfarin. Cardiology evaluated her and didn't require any more Glucagon for reversal. Pt was deemed stable for discharge. Source: patient, RN/MD, old records Date Seen 11/23/21 Time Seen by a Provider: 10:00 Attending Physician Shira Mccarty Aprn PCP Admitting Physician: Haley Foreman DO Attending Physician: aHley Foreman DO Referring Physician Date of Admission Nov 22, 2021 at 22:55 Home Medications & Allergies Home Medications Reviewed patient Home Medication Reconciliation performed by pharmacy medication reconciliations upholstery technician and/or nursing. Patients Allergies have been reviewed. Allergies Allergies Coded Allergies lisinopril (Verified Allergy, Unknown, 11/05/20) Past Xjnxnbl-Rqmjbp-Bobvjc Hx Patient Social History Marrital Status: single Employed/Student: retired Tobacco Use?: No Smoking Status: Former Smoker Use of E-Cig and/or Vaping dev: No Substance use?: No Alcohol Use?: No Pt feels they are or have been: No Immunizations Up To Date First/Initial COVID19 Vaccinat: 07/2020 Second COVID19 Vaccination Antelmo: 07/2020 Tetanus Booster (TDap): More Than 5 Years Hepatitis A: Yes Hepatitis B: Yes Seasonal Allergies Seasonal Allergies: Yes Current Status status: No Communicates: Verbally Primary Language: Armenian Preferred Spoken Language: Armenian Is interpretation needed?: No Past Medical History Surgeries: Hysterectomy, Nephrectomy Atrial Fibrillation, Hypertension 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 Sexually Transmitted Disease: No Kidney Stones Gastroesophageal Reflux Arthritis Diabetes, Non-Insulin dep Loss of Vision: Denies Hearing Impairment: Denies Kidney Did You Recieve Any Treatments: Yes What Type of Treatment Did You: Surgical Intervention Anxiety, Depression Blood Disorders: No PMHx: DMII A fib Allergic rhinitis HTN SurgHx: Eye surgery Hysterectomy Knee replacement bilaterally Family Medical History Heart Disease, Diabetes, Hypertension, Renal Disease Review of Systems Constitutional: see HPI Physical Exam Physical Exam Vital Signs Vital Signs - First Documented 11/22/21 11/22/21 20:54 23:53 Temp 37.0 Pulse 34 Resp 20 B/P (MAP) 156/59 (91) Pulse Ox 98 O2 Delivery Room Air FiO2 21 Capillary Refill : Less Than 3 Seconds Height, Weight, BMI Height: '" Weight: lbs. oz. 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 Short Stay Diagnosis Discharge Diagnosis-Short Stay Admission Diagnosis Sotalol OD Final Discharge Diagnosis Sotalol OD Bradycardia Dizziness AF OAC Conclusion Plan DC home Hold Warfarin today Call PCP for Warfarin dosing Diagnosis/Problems Diagnosis/Problems (1) Adverse reaction to sotalol (2) Paroxysmal atrial fibrillation Status: Acute HALEY FOREMAN DO Nov 23, 2021 11:14
--- NOTE | 2021-11-23 12:13 | Short Stay Summary-Hospitalist ---
KATHYFredJERRICA RAMIREZ 11/23/21 1212: History of Present Illness HPI/Chief Complaint Stacey Ghosh is a 71 year old female with past medical history of paroxysmal afib s/p ablation on sotolol and warfarin who presented on 11/22 with dizziness. She reports she was visiting with her son when she began to feel dizzy. She checked her BP and it was "good" but her HR was 42. She takes Sotalol BID. She took her evening dose. She reports becoming increasingly weak and dizzy. She presented to the ED in [place] where she was given 3mg of Glucagon and transfered to [facility]. No further doses of Glucagon were administered. She denies any near syncope or [place] syncope. No c/o palpitations, CP, SOB. She has chronic mild to mod bilat LE swelling which is unchanged from before. She is maintained on warfarin for stroke prophylaxis. 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 She reports she is to see Dr. Blue next month. She states she is feeling well today and wishes to go home. Source: patient Exam Limitations: no limitations Date Seen 11/23/21 Time Seen by a Provider: 11:00 Attending Physician Shira Mccarty Aprn PCP Admitting Physician: Amanda Davis DO Attending Physician: Amanda Davis DO Referring Physician Date of Admission Nov 22, 2021 at 22:55 Home Medications & Allergies Home Medications Reviewed patient Home Medication Reconciliation performed by pharmacy medication reconciliations overhead crane technician and/or nursing. Patients Allergies have been reviewed. Allergies Allergies Coded Allergies lisinopril (Verified Allergy, Unknown, 11/05/20) Past Medical/Social/Family Hx Patient Social History Tobacco Use?: No Smoking Status: Former Smoker Use of E-Cig and/or Vaping dev: No Substance use?: No Alcohol Use?: No Pt stated abuse/neglect: No Immunizations Up To Date First/Initial COVID19 Vaccinat: 07/2020 Second COVID19 Vaccination [place]elmo: 07/2020 Tetanus Booster (TDap): More Than 5 Years Hepatitis A: Yes Hepatitis B: Yes TB Skin Test: None Current Status status: No Communicates: Verbally Primary Language: Prydeinig Preferred Spoken Language: Prydeinig Is interpretation needed?: No Past Medical History PMHx: DMII A fib Allergic rhinitis HTN SurgHx: Eye surgery Hysterectomy Knee replacement bilaterally Review of Systems Constitutional: No chills, No diaphoresis, No dizziness, No fever EENTM: No hearing loss, No blurred vision Respiratory: No cough, No dyspnea on exertion Cardiovascular: No chest pain Gastrointestinal: No abdominal pain, No constipation, No diarrhea Genitourinary: No dysuria : No Skin: No rash Psychiatric/Neurological: Denies Headache Physical Exam Physical Exam Vital Signs Vital Signs - First Documented 11/22/21 11/22/21 20:54 23:53 Temp 37.0 Pulse 34 Resp 20 B/P (MAP) 156/59 (91) Pulse Ox 98 O2 Delivery Room Air FiO2 21 Capillary Refill : Less Than 3 Seconds Height, Weight, BMI Height: '" Weight: lbs. oz. 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 Short Stay Diagnosis Discharge Diagnosis-Short Stay Admission Diagnosis Bradycardia secondary to Sotolol overdose Final Discharge Diagnosis Bradycardia secondary to Sotolol overdose Conclusion Plan 1) Sinus bradycardia * likely secondary to medications (Sotalol 80 mg BID) * stop Sotalol * continue OAC (hold today d/t supra-therapeutic INR) * Request records from Dr. Blue in [place] 2) PAF * h/o ablation greater than [address] Blue in [place] * OAC with warfarin - managed by Dr. Blue (INR supra-therapeutic 3.4) * Instructed to hold tonight and contact Dr. Blue for further management HTN * Continue antihypertensives HLD * Continue home meds DM 2 * Continue home meds GERD * Continue home meds Dispo: Discharge home today to f/u with Dr. Blue. AMANDA DAVIS DO 11/24/21 0557: History of Present Illness HPI/Chief Complaint CC: Sotalol overdose HPI: This is a 71 yr old female who became a bit confused with her medication and took an overdose of Sotalol after becoming upset. She presented to the ER with dizziness and bradycardia. INR was 3.4 will hold Warfarin. Cardiology evaluated her and didn't require any more Glucagon for reversal. Pt was deemed stable for discharge. Source: patient Exam Limitations: no limitations Past Medical/Social/Family Hx Patient Social History Marrital Status: single Employed/Student: retired Short Stay Diagnosis Discharge Diagnosis-Short Stay Admission Diagnosis Sotalol OD Final Discharge Diagnosis S[place]olo OD Conclusion Plan DC home Supervisory-Addendum Brief Verification & Attestation Participated in pt care: history, MDM, physical Personally performed: exam, history, MDM, supervision of care Care discussed with: Medical Student Procedures: n/a Results interpretation: Verified all documentation Verification and Attestation of Medical Student E/M Service A medical student performed and documented this service in my presence. I reviewed and verified all information documented by the medical student and made modifications to such information, when appropriate. I personally performed the physical exam and medical decision making. Amanda Davis, Nov 24, 2021,05:56 JERRICA SALAMANCA Nov 23, 2021 12:12 AMANDA DAVIS DO Nov 24, 2021 05:57
[2021-11-23] MEDS ORDERED: SOTA80TA62 PO (12:27)
--- NOTE | 2021-11-23 12:33 | Consultation-Cardiology ---
HPI-Cardiology Cardiology Consultation: Date of Consultation 11/23/21 Time Seen by a Provider: 09:30 Date of Admission Attending Physician Shira Mccarty Aprn Admitting Physician Admitting Physician: Amanda Davis DO Attending Physician: Amanda Davis DO Consulting Physician YAZMIN SHELDON MD, MA, FACP, FACC, FSCAI, CCDS HPI: Chief Complaint: Bradycardia Ms. Ghosh is a 71 yr old female admitted to ICU 2 from the ED with c/o dizziness and bradycardia. She reports she has PAF and follows with Dr. Blue in [place]. She reports she has had high blood pressure the last several days at home. Yesterday she checked her BP and it was "good" but her HR was 42. She takes Sotalol BID. She took her evening dose. She reports becoming increasingly weak and dizzy. She denies any near syncope or [place] syncope. No c/o palpitations, CP, SOB. She has chronic mild to mod bilat LE swelling which is unchanged from before. She is maintained on warfarin for stroke prophylaxis. This is followed by her registered dietician. She reports she is to see Dr. Blue next month. She states she is feeling well today and wishes to go home. Review of Systems-Cardiology Review of Systems Constitutional: No chills, No fever; lightheadedness, malaise Eyes: No vision change Ears/Nose/Throat: No nasal drainage, No recent hearing loss Respiratory: As described under HPI Cardiovascular: As described under HPI Gastrointestinal: No constipation, No diarrhea; nausea; No vomiting Genitourinary: No dysuria, No hematuria : No Skin: No rash on exposed areas, No ulcerations on exposed areas Psychiatric/Neurological: No anxiety, No depression, No seizure, No focal weakness, No syncope Hematologic: No bleeding abnormalities FDA-Lhpcdu-Vyxbfn Hx Patient Social History Smoking Status: Former Smoker 2nd Hand Smoke Exposure: No Have you traveled recently?: No Alcohol Use?: No Pt feels they are or have been: No Past Medical History PMH As described under Assessment. Family Medical History Family Medical History: She reports she has a son with WPW. No family h/o CAD or SCD. Allergies and Home Medications Allergies Coded Allergies: lisinopril (Verified Allergy, Unknown, 11/05/20) Patient Home Medication List Home Medication List Reviewed: Yes Acetaminophen (Tylenol Extra Strength) 500 Mg Tablet, 500-1,000 MG PO Q8H PRN for PAIN-MILD (1-4), (Reported) Entered as Reported by: GIANCARLO MCCABE on 02/24/211319 Last Action: Reviewed Amlodipine Besylate (Amlodipine Besylate) 10 Mg Tablet, 10 MG PO DAILY, (Reported) Entered as Reported by: GIANCARLO MCCABE on 02/24/211319 Last Action: Reviewed Bupropion HCl (Forfivo Xl) 450 Mg Tab.er.24h, 450 MG PO DAILY, (Reported) Entered as Reported by: GIANCARLO MCCABE on 11/23/211056 Last Action: Reviewed Fexofenadine HCl (Jocelin Allergy) 180 Mg Tablet, 180 MG PO DAILY, (Reported) Entered as Reported by: GIANCARLO MCCABE on 11/23/211056 Last Action: Reviewed Fluoxetine HCl (Fluoxetine HCl) 20 Mg Capsule, 20 MG PO DAILY, (Reported) Entered as Reported by: GIANCARLO MCCABE on 11/23/211056 Last Action: Reviewed Fluticasone Propionate (Flonase Allergy Relief) 50 Mcg/Actuation [place].susp, 1-2 SPRAY NSEACH DAILY PRN for CONGESTION, (Reported) Entered as Reported by: GIANCARLO MCCABE on 11/23/211056 Last Action: Reviewed Furosemide (Furosemide) 40 Mg Tablet, 40 MG PO DAILY, (Reported) Entered as Reported by: GIANCARLO MCCABE on 02/24/211319 Last Action: Reviewed Hydrocodone/Acetaminophen (Hydrocodone-Acetamin 5-325 mg) 5 Mg-325 Mg Tablet, 1 EA PO DAILY PRN for PAIN-MODERATE (5-7), (Reported) Entered as Reported by: GIANCARLO MCCABE on 11/23/211056 Last Action: Reviewed Irbesartan (Irbesartan) 300 Mg Tablet, 300 MG PO HS, (Reported) Entered as Reported by: GIANCARLO MCCABE on 02/24/211319 Last Action: Reviewed Pantoprazole Sodium (Pantoprazole Sodium) 40 Mg Tablet.dr, 40 MG PO HS, (Reported) Entered as Reported by: GIANCARLO MCCABE on 02/24/211319 Last Action: Reviewed Potassium Chloride (Potassium Chloride) 20 Meq Tab.er.prt, 20 MEQ PO DAILY, (Reported) Entered as Reported by: GIANCARLO MCCABE on 02/24/21 132 Last Action: Reviewed Simvastatin (Simvastatin) 20 Mg Tablet, 20 MG PO HS, (Reported) Entered as Reported by: GIANCARLO MCCABE on 02/24/211319 Last Action: Reviewed Temazepam (Temazepam) 15 Mg Capsule, 15 MG PO HS PRN for SLEEP, (Reported) Entered as Reported by: GIANCARLO MCCABE on 11/23/21 1057 Last Action: Reviewed Vitamin B Complex (B Complex) 1 Each Tablet, 1 EACH PO DAILY, (Reported) Entered as Reported by: GIANCARLO MCCABE on 02/24/211319 Last Action: Reviewed Warfarin Sodium (Warfarin Sodium) 5 Mg Tablet, 5 MG PO DAILY Prescribed by: AMANDA DAVIS on 11/23/21 111 Warfarin Sodium (Warfarin Sodium) 1 Mg Tablet, 1.5 MG PO DAILY Prescribed by: AMANDA DAVIS on 11/23/21 1112 Discontinued Medications Cephalexin (Cephalexin) 250 Mg Capsule, 500 MG PO TID Discontinued Reason: Duplicate Order Prescribed by: ANGELITO ORELLANA on 03/10/21 1203 Last Action: Discontinued Doxazosin Mesylate (Doxazosin Mesylate) 2 Mg Tablet, 2 MG PO DAILY, (Reported) Discontinued Reason: Duplicate Order Entered as Reported by: GIANCARLO MCCABE on 02/24/211319 Last Action: Discontinued Fluoxetine HCl (Fluoxetine HCl) 40 Mg Capsule, 40 MG PO DAILY, (Reported) Discontinued Reason: Duplicate Order Entered as Reported by: GIANCARLO MCCABE on 02/24/211319 Last Action: Discontinued Hydrocodone Bit/Acetaminophen (HYDROcodone/APAP 5 MG/325 MG TAB) 1 Tab Tab, 1 EA PO Q4H PRN for PAIN-MODERATE (5-7) Discontinued Reason: New Order Prescribed by: ANGELITO ORELLANA on 03/10/21 1204 Last Action: Discontinued Nitrofurantoin Monohyd/M-Cryst (Macrobid 100 mg Capsule) 100 Mg Capsule, 1 TAB PO BID Discontinued Reason: No Longer Taking Prescribed by: DONNA BARCENAS on 04/30/21 1428 Last Action: Discontinued Sotalol HCl (Sotalol) 160 Mg Tablet, 80 MG PO BID, (Reported) Discontinued Reason: Duplicate Order Entered as Reported by: GIANCARLO MCCABE on 02/24/21 1320 Last Action: Discontinued Sotalol HCl (Sotalol) 160 Mg Tablet, 80 MG PO BID, (Reported) Discontinued Reason: Provider Change Entered as Reported by: GIANCARLO MCCABE on 11/23/21 1057 Last Action: Reviewed Physical Exam-Cardiology Physical Exam Vital Signs/I&O 11/23/21 11/23/21 11/23/21 11/23/21 01:00 01:06 02:00 03:00 Pulse 52 50 53 53 Resp 25 B/P (MAP) 141/75 149/78 134/69 Pulse Ox 94 94 96 O2 Delivery Room Air Room Air Room Air 11/23/21 11/23/21 11/23/21 11/23/21 04:00 04:00 05:00 06:00 Pulse 51 51 53 B/P (MAP) 133/71 148/72 134/73 Pulse Ox 93 97 94 90 O2 Delivery Room Air Room Air Room Air Room Air 11/23/21 11/23/21 11/23/21 11/23/21 07:00 07:00 08:00 08:00 Pulse 57 59 53 Resp 17 14 B/P (MAP) 152/117 132/90 Pulse Ox 95 98 O2 Delivery Room Air Room Air Room Air 11/23/21 11/23/21 11/23/21 11/23/21 08:00 09:00 10:00 11:00 Temp 36.2 Pulse 51 71 57 Resp 57 28 13 B/P (MAP) 152/73 101/54 150/77 Pulse Ox 96 97 95 O2 Delivery Room Air Room Air Room Air 11/23/21 00:00 Intake Total 1000 ml Balance 1000 ml Capillary Refill : Less Than 3 Seconds Constitutional: AAO x 3, well-developed, well-nourished HEENT: PERRL, hearing is well preserved, oral hygience is good Neck: No carotid bruit; carotid pulses are 2 + bilaterally Respiratory: No accessory muscle use, No respiratory distress; chest expansion is symmetric, chest is bilaterally symmetric, lungs clear to auscultation Cardiovascular: regular rate-rhythm, bradycardia Gastrointestinal: No tender; soft, round, audible bowel sounds Extremities: no lower extremity edema bilateral Neurologic/Psychiatric: grossly intact (moves all extremities) Skin: No rash on exposed areas, No ulcerations on exposed areas Data Review Labs Laboratory Tests 11/22/21 20:50: White Blood Count 11.8H, Red Blood Count 4.96, Hemoglobin 14.8, Hematocrit 44, Mean Corpuscular Volume 89, Mean Corpuscular Hemoglobin 30, Mean Corpuscular Hemoglobin Concent 34, Red Cell Distribution Width 15.3H, Platelet Count 248, Mean Platelet Volume 10.4, Immature Granulocyte % (Auto) 0, Neutrophils (%) (Auto) 78H, Lymphocytes (%) (Auto) 11L, Monocytes (%) (Auto) 8, Eosinophils (%) (Auto) 2, Basophils (%) (Auto) 0, Neutrophils # (Auto) 9.2H, Lymphocytes # (Auto) 1.3, Monocytes # (Auto) 0.9, Eosinophils # (Auto) 0.2, Basophils # (Auto) 0.1, Immature Granulocyte # (Auto) 0.0, Sodium Level 139, Potassium Level 4.4, Chloride Level 103, Carbon Dioxide Level 24, Anion Gap 12, Blood Urea Nitrogen 25H, Creatinine 1.25, Estimat Glomerular Filtration Rate 46, BUN/Creatinine Ratio 20, Glucose Level 110H, Calcium Level 9.6, Corrected Calcium 9.2, Magnesium Level 2.1, Total Bilirubin 0.4, Aspartate Amino Transf (AST/SGOT) 20, Alanine Aminotransferase (ALT/SGPT) 25, Alkaline Phosphatase 81, Troponin I < 0.30, Pro-B-Type Natriuretic Peptide 195.1H, Total Protein 7.9, Albumin 4.5 11/22/21 21:05: Lactic Acid Level 1.18, Influenza Type A (RT-PCR) Not Detected, Influenza Type B (RT-PCR) Not Detected, SARS-CoV-2 RNA (RT-PCR) Not Detected 11/23/21 04:46: White Blood Count 10.2, Red Blood Count 4.38, Hemoglobin 13.0, Hematocrit 40, Mean Corpuscular Volume 92, Mean Corpuscular Hemoglobin 30, Mean Corpuscular Hemoglobin Concent 32, Red Cell Distribution Width 15.2H, Platelet Count 201, Mean Platelet Volume 10.7, Immature Granulocyte % (Auto) 0, Neutrophils (%) (Auto) 76H, Lymphocytes (%) (Auto) 14, Monocytes (%) (Auto) 8, Eosinophils (%) (Auto) 2, Basophils (%) (Auto) 0, Neutrophils # (Auto) 7.7, Lymphocytes # (Auto) 1.4, Monocytes # (Auto) 0.9, Eosinophils # (Auto) 0.2, Basophils # (Auto) 0.0, Immature Granulocyte # (Auto) 0.0, Sodium Level 141, Potassium Level 3.9, Chloride Level 108H, Carbon Dioxide Level 23, Anion Gap 10, Blood Urea Nitrogen 21H, Creatinine 0.83, Estimat Glomerular Filtration Rate 75, BUN/Creatinine Ratio 25, Glucose Level 92, Calcium Level 9.1, Corrected Calcium 9.4, Magnesium Level 2.1, Total Bilirubin 0.6, Aspartate Amino Transf (AST/SGOT) 18, Alanine Aminotransferase (ALT/SGPT) 22, Alkaline Phosphatase 63, Total Protein 6.4, Albumin 3.6, Prothrombin Time 34.7H, INR Comment 3.4H, Phosphorus Level 2.4 Laboratory Tests 11/22/21 20:50 11/23/21 04:46 A/P-Cardiology Assessment/Admission Diagnosis Sinus bradycardia - likely secondary to medications (Sotalol 80 mg BID) PAF - h/o ablation greater than [address] Blue in [place] - OAC with warfarin - managed by Dr. Blue (INR supra-therapeutic 3.4) HTN HLD DM 2 GERD H/O breast reduction H/O hemicolectomy by Dr. Hector H/O right nephrectomy d/t carcinoma (greaer than 10 yrs ago) Discussion and Recomendations Sinus bradycardia likely secondary to Sotalol - cut the dose of sotalol by half - continue OAC (hold today d/t supra-therapeutic INR) Continue antihypertensives She would like to go home today to f/u with Dr. Blue Advised f/u with her registered dietician and her EP JOSÉ MIGUEL We would like to thank Medical services for this consult YAZMIN SHELDON MD FACP [facility] Nov 23, 2021 12:33
[2021-11-23 12:52] VITALS: BP 151/74
== END 2021-11-23 12:52 | disposition home or self-care (01) ==
LOC: EDUNIT# 20:18 → ER FS 20:20 → INTOOBSV 22:55 → UNDOADMOB 22:55 → ICU 22:55 → UNDODISOB 11-23 12:52
PROVIDERS: ADMIT Internal Medicine; ATTEND Internal Medicine
DX: T44.7X1A Poisoning by beta-adrenoreceptor antagonists, accidental (unintentional), initial encounter (principal); R42 Dizziness and giddiness; R00.1 Bradycardia, unspecified; I48.0 Paroxysmal atrial fibrillation; I10 Essential (primary) hypertension; E78.5 Hyperlipidemia, unspecified; Z90.5 Acquired absence of kidney; Z20.822 Contact with and (suspected) exposure to COVID-19; Z85.528 Personal history of other malignant neoplasm of kidney; Z79.01 Long term (current) use of anticoagulants; Z88.8 Allergy status to other drugs, medicaments and biological substances
CPT/HCPCS: 36415; 71045; 80053; 83605; 83735; 83880; 84100; 84484; 85025; 85027; 85610; 87081; 87636; 93005; 96361

== ENCOUNTER → 2022-01-11 | Outpatient (CLI) | payer MEDICARE, MEDICAID ==
[~2022-01-11] MED LIST changes: +BUPR450T PO; +FEXO180T84 PO; +FLUO20CA48 PO; +FLUT9.9S NSEACH; +SOTA80TA62 PO; +TEMA15CA PO
== END ==
LOC: CARDFS 13:41
PROVIDERS: ATTEND Internal Medicine Cardiovascular Disease
DX: I48.91 Unspecified atrial fibrillation (principal)
CPT/HCPCS: 93306

== ENCOUNTER 2022-04-01 02:57 | Emergency (ER) | payer MEDICARE, MEDICAID ==
[~2022-04-01] VITALS: Ht 162.5 cm; Wt 110.7 kg
[2022-04-01 02:59] VITALS: BP 187/74
--- NOTE | 2022-04-01 03:25 | ED Cardiac General ---
History of Present Illness General Chief Complaint: Cardiac/General Problems Stated Complaint: HIGH BLOOD PRESSURE Nursing Triage Note: Patient presents to the ER complaining of high blood pressure. Patient states that she had taken her blood pressure at home and got 160's systolic. Patient states that she was prompted to take her blood pressure due to a "whooshing" sound in her head. Patient has a history of HTN and takes several medications for it. Patient also reports taking a blood pressure pill before she came and asked how long it takes to "kick in". Patient denies headache, dizziness, confusion and chest pain. History of Present Illness Date Seen by Provider: Apr 01, 2022 Time Seen by Provider: 03:08 Initial Comments 71-year-old female with PMH of HTN, is here with complaints of elevated blood pressure reading at home at 2:30 AM. Patient stated that she forgot to take her night blood pressure medication and woke up and took it around 230 and then checked her blood pressure which she realized was high. Patient decided to come to the ER to check her blood pressure. Patient is completely asymptomatic and denies any chest pain, palpitations, nausea or vomiting, shortness of breath. Patient states that she felt a "whooshing" noise in her left ear and thought it had to do with her BP. Patient stated that she has been given antibiotic eardrops for her left ear a few days ago but she did not start taking it as instructed by her tie presser. Allergies and Home Medications Allergies Coded Allergies: lisinopril (Verified Allergy, Unknown, 11/05/20) Patient Home Medication List Home Medication List Reviewed: Yes Acetaminophen (Tylenol Extra Strength) 500 Mg Tablet, 500-1,000 MG PO Q8H PRN for PAIN-MILD (1-4), (Reported) Entered as Reported by: GIANCARLO MCCABE on 02/24/21 1320 Amlodipine Besylate (Amlodipine Besylate) 10 Mg Tablet, 10 MG PO DAILY, (Reported) Entered as Reported by: GIANCARLO MCCABE on 02/24/21 1320 Bupropion HCl (Forfivo Xl) 450 Mg Tab.er.24h, 450 MG PO DAILY, (Reported) Entered as Reported by: GIANCARLO MCCABE on 11/23/21 1057 Fexofenadine HCl (Jocelin Allergy) 180 Mg Tablet, 180 MG PO DAILY, (Reported) Entered as Reported by: GIANCARLO MCCABE on 11/23/21 1057 Fluoxetine HCl (Fluoxetine HCl) 20 Mg Capsule, 20 MG PO DAILY, (Reported) Entered as Reported by: GIANCARLO MCCABE on 11/23/21 105 Fluticasone Propionate (Flonase Allergy Relief) 50 Mcg/Actuation [place].susp, 1-2 SPRAY NSEACH DAILY PRN for CONGESTION, (Reported) Entered as Reported by: GIANCARLO MCCABE on 11/23/21 105 Furosemide (Furosemide) 40 Mg Tablet, 40 MG PO DAILY, (Reported) Entered as Reported by: GIANCARLO MCCABE on 02/24/21 1320 Hydrocodone/Acetaminophen (Hydrocodone-Acetamin 5-325 mg) 5 Mg-325 Mg Tablet, 1 EA PO DAILY PRN for PAIN-MODERATE (5-7), (Reported) Entered as Reported by: GIANCARLO MCCABE on 11/23/21 105 Irbesartan (Irbesartan) 300 Mg Tablet, 300 MG PO HS, (Reported) Entered as Reported by: GIANCARLO MCCABE on 02/24/21 132 Pantoprazole Sodium (Pantoprazole Sodium) 40 Mg Tablet.dr, 40 MG PO HS, (Reported) Entered as Reported by: GIANCARLO MCCABE on 02/24/21 132 Potassium Chloride (Potassium Chloride) 20 Meq Tab.er.prt, 20 MEQ PO DAILY, (Reported) Entered as Reported by: GIANCARLO MCCABE on 02/24/21 132 Simvastatin (Simvastatin) 20 Mg Tablet, 20 MG PO HS, (Reported) Entered as Reported by: GIANCARLO MCCABE on 02/24/21 1320 Sotalol HCl (Sotalol) 80 Mg Tablet, 40 MG PO BID Prescribed by: DOMONIQUE VAUGHAN on 11/23/21 1234 Temazepam (Temazepam) 15 Mg Capsule, 15 MG PO HS PRN for SLEEP, (Reported) Entered as Reported by: GIANCARLO MCCABE on 11/23/21 105 Vitamin B Complex (B Complex) 1 Each Tablet, 1 EACH PO DAILY, (Reported) Entered as Reported by: GIANCARLO MCCABE on 02/24/21 1320 Warfarin Sodium (Warfarin Sodium) 5 Mg Tablet, 5 MG PO DAILY Prescribed by: AMANDA DAVIS on 11/23/21 1112 Warfarin Sodium (Warfarin Sodium) 1 Mg Tablet, 1.5 MG PO DAILY Prescribed by: AMANDA DAVIS on 11/23/21 1112 Review of Systems Review of Systems Constitutional: other (one elevated BP read at home) EENTM: No Symptoms Reported Respiratory: No Symptoms Reported Cardiovascular: No Symptoms Reported Gastrointestinal: No Symptoms Reported Genitourinary: No Symptoms Reported Musculoskeletal: no symptoms reported Skin: no symptoms reported Psychiatric/Neurological: No Symptoms Reported Endocrine: No Symptoms Reported Hematologic/Lymphatic: No Symptoms Reported Past Zffokob-Tyvfmu-Jvixou Hx Patient Social History Tobacco Use?: No Substance use?: No Alcohol Use?: No Pt feels they are or have been: No Immunizations Up To Date First/Initial COVID19 Vaccinat: 07/2020 Second COVID19 Vaccination [place]: 07/2020 Third COVID19 Vaccination Date: 07/2020 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: [place] Seasonal Allergies Seasonal Allergies: Yes Past Medical History Surgery/Hospitalization HX: Atrial fibrillation, hypertension Surgeries: Yes Hysterectomy, Nephrectomy Respiratory: No Cardiac: Yes Atrial Fibrillation, Hypertension Neurological: No 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 Disorders: No 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 Sexually Transmitted Disease: No Genitourinary: No Kidney Stones Gastrointestinal: Yes Gastroesophageal Reflux Musculoskeletal: Yes Arthritis Endocrine: Yes Diabetes, Non-Insulin dep HEENT: No Loss of Vision: Denies Hearing Impairment: Denies Cancer: No Kidney Did You Recieve Any Treatments: Yes What Type of Treatment Did You: Surgical Intervention Psychosocial: No Anxiety, Depression Integumentary: No Blood Disorders: No Family Medical History Heart Disease, Diabetes, Hypertension, Renal Disease Physical Exam Vital Signs Vital Signs - First Documented 04/01/22 02:59 Temp 37.0 Pulse 58 Resp 16 B/P (MAP) 187/74 (111) Pulse Ox 97 O2 Delivery Room Air Capillary Refill : Less Than 3 Seconds Height, Weight, BMI Height: '" Weight: lbs. oz. kg; 41.00 BMI Method: General Appearance: No Apparent Distress, WD/WN HEENT: PERRL/EOMI, Other (Left otitis externa with canal being inflamed and erythematous and moist appearing) Neck: Full Range of Motion Respiratory: Chest Non Tender, Lungs Clear, Normal Breath Sounds Cardiovascular: Regular Rate, Rhythm, No Edema Gastrointestinal: Non Tender, Soft Neurologic/Psychiatric: Alert, Oriented x3, No Motor/Sensory Deficits, Normal Mood/Affect Skin: Normal Color Progress/Results/Core Measures Results/Orders Vital Signs/I&O 04/01/22 02:59 Temp 37.0 Pulse 58 Resp 16 B/P (MAP) 187/74 (111) Pulse Ox 97 O2 Delivery Room Air Blood Pressure Mean: 111 Progress Progress Note : Progress Note 1. BLOOD PRESSURE CHECK: - 144/73 in ER - Keep BP log at home and follow up with PCP in 7 days - Pt is completely asymptomatic. Patient's home blood pressure was likely high because she did not take her night BP medications. -The patient was seen in the ED, and treated appropriately to presentation at a specific point in time. Patient is informed that there is a possibility that disease and illness can evolve and change in acuity rapidly or slowly after patient is discharged from the ER. Precautionary advice given to the patient for immediate return to ER if symptoms worsen or do not resolve, and to seek emergency care sooner rather than later. Pt also advised on the importance of PCP follow up and compliance with management and follow up plan with PCP and/or specialist, as this is part of the management plan. Pt verbally expressed understanding. 2. LEFT OTITIS EXTERNA: - Advised pt to start taking the antibiotic ear drop she was prescribed a few days ago. Pt has not started taking it. Explained to pt the sound she hears in her left ear is likely due to her ear infection. Departure Impression Primary Impression: Blood pressure check Disposition: 01 HOME, SELF-CARE Condition: Improved Departure-Patient Inst. Referrals: IVON KLEIN APRN (PCP) Primary Care Physician [facility]HEATHER (Family) Primary Care Physician Patient Instructions: Heart Healthy Diet Add. Discharge Instructions: - Keep BP log at home and follow up with PCP in 7 days - Advised pt to start taking the antibiotic ear drop she was prescribed a few days ago All discharge instructions reviewed with patient and/or family. Voiced understanding. ARRON NEIL MD Apr 01, 2022 03:25
== END 2022-04-01 03:27 | disposition home or self-care (01) ==
LOC: EDUNIT# 02:57 → ER FS 02:59
DX: Z01.30 Encounter for examination of blood pressure without abnormal findings (principal)
CPT/HCPCS: 99281

== ENCOUNTER 2022-11-04 18:08 | Emergency (ER) | payer MEDICARE, MEDICAID ==
--- NOTE | 2022-11-04 18:12 | ED General ---
General Stated Complaint: LIGHT HEADED History of Present Illness Date Seen by Provider: Nov 04, 2022 Time Seen by Provider: 18:11 Initial Comments 72-year-old female presents because she is feels "just little off may be dizzy but cannot explain it. Is been going on for couple days. She presents because she just want to have her heart checked out to see if we give her out why she is feeling little bit off. Her symptoms are very nonspecific. Allergies and Home Medications Allergies Coded Allergies: lisinopril (Verified Allergy, Unknown, 11/05/20) Patient Home Medication List Home Medication List Reviewed: Yes Acetaminophen (Tylenol Extra Strength) 500 Mg Tablet, 500-1,000 MG PO Q8H PRN for PAIN-MILD (1-4), (Reported) Entered as Reported by: GIANCARLO MCCABE on 02/24/21 1320 Amlodipine Besylate (Amlodipine Besylate) 10 Mg Tablet, 10 MG PO DAILY, (Reported) Entered as Reported by: GIANCARLO MCCABE on 02/24/21 1320 Bupropion HCl (Forfivo Xl) 450 Mg Tab.er.24h, 450 MG PO DAILY, (Reported) Entered as Reported by: GIANCARLO MCCABE on 11/23/21 1057 Fexofenadine HCl (Jocelin Allergy) 180 Mg Tablet, 180 MG PO DAILY, (Reported) Entered as Reported by: GIANCARLO MCCABE on 11/23/21 105 Fluoxetine HCl (Fluoxetine HCl) 20 Mg Capsule, 20 MG PO DAILY, (Reported) Entered as Reported by: GIANCARLO MCCABE on 11/23/21 105 Fluticasone Propionate (Flonase Allergy Relief) 50 Mcg/Actuation [place].susp, 1-2 SPRAY NSEACH DAILY PRN for CONGESTION, (Reported) Entered as Reported by: GIANCARLO MCCABE on 11/23/21 105 Furosemide (Furosemide) 40 Mg Tablet, 40 MG PO DAILY, (Reported) Entered as Reported by: GIANCARLO MCCABE on 02/24/21 1320 Hydrocodone/Acetaminophen (Hydrocodone-Acetamin 5-325 mg) 5 Mg-325 Mg Tablet, 1 EA PO DAILY PRN for PAIN-MODERATE (5-7), (Reported) Entered as Reported by: GIANCARLO MCCABE on 11/23/21 105 Irbesartan (Irbesartan) 300 Mg Tablet, 300 MG PO HS, (Reported) Entered as Reported by: GIANCARLO MCCABE on 02/24/21 1320 Pantoprazole Sodium (Pantoprazole Sodium) 40 Mg Tablet.dr, 40 MG PO HS, (Reported) Entered as Reported by: GIANCARLO MCCABE on 02/24/21 1320 Potassium Chloride (Potassium Chloride) 20 Meq Tab.er.prt, 20 MEQ PO DAILY, (Reported) Entered as Reported by: GIANCARLO MCCABE on 02/24/21 1320 Simvastatin (Simvastatin) 20 Mg Tablet, 20 MG PO HS, (Reported) Entered as Reported by: GIANCARLO MCCABE on 02/24/21 1320 Sotalol HCl (Sotalol) 80 Mg Tablet, 40 MG PO BID Prescribed by: DOMONIQUE VAUGHAN on 11/23/21 1234 Temazepam (Temazepam) 15 Mg Capsule, 15 MG PO HS PRN for SLEEP, (Reported) Entered as Reported by: GIANCARLO MCCABE on 11/23/21 1057 Vitamin B Complex (B Complex) 1 Each Tablet, 1 EACH PO DAILY, (Reported) Entered as Reported by: GIANCARLO MCCABE on 02/24/21 1320 Warfarin Sodium (Warfarin Sodium) 5 Mg Tablet, 5 MG PO DAILY Prescribed by: AMANDA DAVIS on 11/23/21 1112 Warfarin Sodium (Warfarin Sodium) 1 Mg Tablet, 1.5 MG PO DAILY Prescribed by: AMANDA DAVIS on 11/23/21 1112 Review of Systems Review of Systems Constitutional: see HPI EENTM: no symptoms reported Respiratory: no symptoms reported Cardiovascular: no symptoms reported Genitourinary: no symptoms reported Musculoskeletal: no symptoms reported Psychiatric/Neurological: No Symptoms Reported Hematologic/Lymphatic: No Symptoms Reported Past [id number] Hx Immunizations Up To Date First/Initial COVID19 Vaccinat: 07/2020 Second COVID19 Vaccination [place]: 07/2020 Third COVID19 Vaccination Date: 07/2020 Seasonal Allergies Seasonal Allergies: Yes Past Medical History Surgery/Hospitalization HX: Atrial fibrillation, hypertension Surgeries: Yes Hysterectomy, Nephrectomy Respiratory: No Cardiac: Yes Atrial Fibrillation, Hypertension Neurological: No 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 Disorders: No D[employer] History: Hysterectomy Sexually Transmitted Disease: No Genitourinary: No Kidney Stones Gastrointestinal: Yes Gastroesophageal Reflux Musculoskeletal: Yes Arthritis Endocrine: Yes Diabetes, Non-Insulin dep HEENT: No Loss of Vision: Denies Hearing Impairment: Denies Cancer: No Kidney Did You Recieve Any Treatments: Yes What Type of Treatment Did You: Surgical Intervention Psychosocial: No Anxiety, Depression Integumentary: No Blood Disorders: No Family Medical History Heart Disease, Diabetes, Hypertension, Renal Disease Physical Exam Vital Signs Vital Signs - First Documented 11/04/22 18:15 Temp 36.9 Pulse 76 Resp 17 B/P (MAP) 196/92 (126) Pulse Ox 95 O2 Delivery Room Air Capillary Refill : Height, Weight, BMI Height: '" Weight: lbs. oz. kg; 41.00 BMI Method: General Appearance: No Apparent Distress, WD/WN HEENT: PERRL/EOMI Neck: Non Tender, Supple Respiratory: Lungs Clear, Normal Breath Sounds Cardiovascular: Regular Rate, Rhythm, Normal Peripheral Pulses Gastrointestinal: Non Tender Extremity: Normal Capillary Refill, Normal Inspection, Normal Range of Motion Neurologic/Psychiatric: Alert, Oriented x3, No Motor/Sensory Deficits, Normal Mood/Affect Progress/Results/Core Measures Suspected Sepsis SIRS Temperature: Pulse: Respiratory Rate: Laboratory Tests 11/04/22 18:20: White Blood Count 9.2 Blood Pressure / Mean: Laboratory Tests 11/04/22 18:20: Creatinine 1.06, Platelet Count 221, Total Bilirubin 0.3 Results/Orders Lab Results Laboratory Tests Test 11/04/22 18:10 11/04/22 18:20 Range/Units Urine Color YELLOW Urine Clarity SLIGHTLY CLOUDY Urine pH 5.5 5-9 Urine Specific [place] 1.010 L 1.016-1.022 Urine Protein NEGATIVE NEGATIVE Urine Glucose (UA) NEGATIVE NEGATIVE Urine Ketones NEGATIVE NEGATIVE Urine Nitrite NEGATIVE NEGATIVE Urine Bilirubin NEGATIVE NEGATIVE Urine Urobilinogen 0.2 < = 1.0 MG/DL Urine Leukocyte Esterase 2+ H NEGATIVE Urine RBC (Auto) NEGATIVE NEGATIVE Urine RBC NONE /HPF Urine WBC 50-100 H /HPF Urine Squamous Epithelial Cells 10-25 H /HPF Urine Crystals NONE /LPF Urine Bacteria LARGE H /HPF Urine Casts NONE /LPF Urine Mucus NEGATIVE /LPF Urine Culture Indicated YES White Blood Count 9.2 4.3-11.0 10^3/uL Red Blood Count 4.61 3.80-5.11 10^6/uL Hemoglobin 13.6 11.5-16.0 g/dL Hematocrit 41 35-52 % Mean Corpuscular Volume 90 80-99 fL Mean Corpuscular Hemoglobin 30 25-34 pg Mean Corpuscular Hemoglobin Concent 33 32-36 g/dL Red Cell Distribution Width 14.7 H 10.0-14.5 % Platelet Count 221 130-400 10^3/uL Mean Platelet Volume 10.5 9.0-12.2 fL Immature Granulocyte % (Auto) 0 % Neutrophils (%) (Auto) 75 42-75 % Lymphocytes (%) (Auto) 16 12-44 % Monocytes (%) (Auto) 7 0-12 % Eosinophils (%) (Auto) 2 0-10 % Basophils (%) (Auto) 0 0-10 % Neutrophils # (Auto) 6.9 1.8-7.8 10^3/uL Lymphocytes # (Auto) 1.5 1.0-4.0 10^3/uL Monocytes # (Auto) 0.6 0.0-1.0 10^3/uL Eosinophils # (Auto) 0.2 0.0-0.3 10^3/uL Basophils # (Auto) 0.0 0.0-0.1 10^3/uL Immature Granulocyte # (Auto) 0.0 0.0-0.1 10^3/uL Sodium Level 142 135-145 MMOL/L Potassium Level 4.0 3.6-5.0 MMOL/L Chloride Level 104 98-107 MMOL/L Carbon Dioxide Level 23 21-32 MMOL/L Anion Gap 15 H 5-14 MMOL/L Blood Urea Nitrogen 28 H 7-18 MG/DL Creatinine 1.06 0.60-1.30 MG/DL Estimat Glomerular Filtration Rate 55 BUN/Creatinine Ratio 26 Glucose Level 211 H 70-105 MG/DL Calcium Level 9.9 8.5-10.1 MG/DL Corrected Calcium 9.9 8.5-10.1 MG/DL Magnesium Level 1.8 1.6-2.4 MG/DL Total Bilirubin 0.3 0.1-1.0 MG/DL Aspartate Amino Transf (AST/SGOT) 21 5-34 U/L Alanine Aminotransferase (ALT/SGPT) 25 0-55 U/L Alkaline Phosphatase 99 40-136 U/L Troponin I < 0.30 <0.30 NG/ML Total Protein 7.2 6.4-8.2 GM/DL Albumin 4.0 3.2-4.5 GM/DL My Orders Orders - LIM,LADY L DO Ekg Tracing (11/04/22 18:19) Monitor-Rhythm Ecg Trace Only (11/04/22 18:19) Cbc With Automated Diff (11/04/22 18:19) Comprehensive Metabolic Panel (11/04/22 18:19) Magnesium (11/04/22 18:19) Troponin I Fs (11/04/22 18:19) Ua Culture If Indicated (11/04/22 18:24) Urine Culture (11/04/22 18:10) Vital Signs/I&O 11/04/22 18:15 Temp 36.9 Pulse 76 Resp 17 B/P (MAP) 196/92 (126) Pulse Ox 95 O2 Delivery Room Air Capillary Refill : Progress Note : Progress Note Patient's diagnostic studies were ordered reviewed and interpreted by me. Patient's CBC CMP and troponin were all negative. Patient does have a urine is concerning for urinary tract infection which could be contributing to her symptoms. I will treat her with antibiotics. She should follow-up with her primary care provider in a couple days for recheck. She is stable and discharged home Departure Impression Primary Impression: Acute cystitis without hematuria Disposition: HOME, SELF-CARE Condition: Stable Departure-Patient Inst. Referrals: IVON KLEIN APRN (PCP) Primary Care Physician [facility]ATH[facility] (Family) Primary Care Physician Patient Instructions: Urinary Tract Infection, Adult (DC) Add. Discharge Instructions: Please follow-up with Ivon Klein or Saturday for recheck Scripts Nitrofurantoin Macrocrystal (Nitrofurantoin) 100 Mg Capsule 100 MG PO BID, #10 CAP 0 Refills Prov: LIM,LADY L DO 11/04/22 LIM,LAYD L DO Nov 04, 2022 18:11
[2022-11-04 18:25] LABS: BASOPHILS % (AUTO) 0 % (0-10); EOSINOPHILS # (AUTO) 0.2 10^3/uL (0.0-0.3); EOSINOPHILS % (AUTO) 2 % (0-10); HEMATOCRIT 41 % (35-52); HEMOGLOBIN 13.6 g/dL (11.5-16.0); LYMPHOCYTES # (AUTO) 1.5 10^3/uL (1.0-4.0); LYMPHOCYTES % (AUTO) 16 % (12-44); MEAN CORPUSCULAR HEMOGLOBIN 30 pg (25-34); MEAN CORPUSCULAR HGB CONC 33 g/dL (32-36); MEAN CORPUSCULAR VOLUME 90 fL (80-99); MEAN PLATELET VOLUME 10.5 fL (9.0-12.2); MONOCYTES # (AUTO) 0.6 10^3/uL (0.0-1.0); MONOCYTES % (AUTO) 7 % (0-12); NEUTROPHILS # (AUTO) 6.9 10^3/uL (1.8-7.8); NEUTROPHILS % (AUTO) 75 % (42-75); PLATELET COUNT 221 10^3/uL (130-400); WHITE BLOOD COUNT 9.2 10^3/uL (4.3-11.0)
[2022-11-04 18:28] LABS: BILIRUBIN,URINE NEGATIVE (NEGATIVE); CLARITY,URINE SLIGHTLY CLOUDY; COLOR,URINE YELLOW; GLUCOSE, URINE (UA) NEGATIVE (NEGATIVE); KETONES,URINE NEGATIVE (NEGATIVE); LEUKOCYTE ESTERASE ,URINE 2+ (NEGATIVE); NITRITE,URINE NEGATIVE (NEGATIVE); PH,URINE 5.5 (5-9); PROTEIN,URINE NEGATIVE (NEGATIVE)
[2022-11-04 18:29] LABS: BACTERIA,URINE LARGE /HPF; WBC,URINE 50-100 /HPF
[2022-11-04 18:47] LABS: ALANINE AMINOTRANSFERASE 25 U/L (0-55); ALKALINE PHOSPHATASE 99 U/L (40-136); BILIRUBIN,TOTAL 0.3 MG/DL (0.1-1.0); BUN/CREATININE RATIO 26; CALCIUM 9.9 MG/DL (8.5-10.1); CARBON DIOXIDE 23 MMOL/L (21-32); CHLORIDE 104 MMOL/L (98-107); CREATININE SERUM 1.06 MG/DL (0.60-1.30); GFR ESTIMATED 55; GLUCOSE 211 MG/DL (70-105); MAGNESIUM 1.8 MG/DL (1.6-2.4); SODIUM 142 MMOL/L (135-145); TOTAL PROTEIN 7.2 GM/DL (6.4-8.2)
[2022-11-04] MEDS ORDERED: NITR100C PO (18:58)
[2022-11-04] MEDS ORDERED: NITROFURANTOIN 100 MG (MACROBID) CAPSULE PO ONE (19:00)
[2022-11-04 19:04] VITALS: BP 167/89
== END 2022-11-04 19:04 | disposition home or self-care (01) ==
LOC: EDUNIT# 18:08 → ER FS 18:10
DX: N30.00 Acute cystitis without hematuria (principal)
CPT/HCPCS: 36415; 80053; 81000; 83735; 84484; 85025; 87088; 93005; 93041